=== PATIENT | female | born 1960 | race Caucasian/White ===

== ENCOUNTER → 2020-09-06 13:41 | Outpatient (BNVA) | payer MEDICARE, SELFPAY | PROVIDERS: PCP Internal Medicine; Visit Provider Hospitalist | DX: D80.1 Nonfamilial hypogammaglobulinemia (principal); J45.40 Moderate persistent asthma, uncomplicated; J01.00 Acute maxillary sinusitis, unspecified | CPT/HCPCS: 99212 ==

== ENCOUNTER → 2020-10-25 13:59 | Outpatient (BNVA) | payer MEDICARE, SELFPAY | PROVIDERS: PCP Internal Medicine; Visit Provider Hospitalist | DX: J01.00 Acute maxillary sinusitis, unspecified (principal); J45.40 Moderate persistent asthma, uncomplicated; D80.1 Nonfamilial hypogammaglobulinemia | CPT/HCPCS: Q3014 ==

== ENCOUNTER → 2021-03-08 14:30 | Outpatient (BNVA) | payer MEDICARE, SELFPAY | PROVIDERS: PCP Internal Medicine; Visit Provider Hospitalist | DX: J45.40 Moderate persistent asthma, uncomplicated (principal); D80.1 Nonfamilial hypogammaglobulinemia | CPT/HCPCS: 99212 ==

== ENCOUNTER → 2021-10-27 13:30 | Outpatient (BNVA) | payer MEDICARE, SELFPAY | PROVIDERS: PCP Internal Medicine; Visit Provider Hospitalist | DX: J45.40 Moderate persistent asthma, uncomplicated (principal); J32.9 Chronic sinusitis, unspecified; D80.1 Nonfamilial hypogammaglobulinemia; Z79.899 Other long term (current) drug therapy | CPT/HCPCS: 99212 ==

== ENCOUNTER 2021-11-07 20:24 | Emergency (ER) | payer MEDICARE, SELFPAY ==
[2021-11-07 20:28] VITALS: BP 147/87; PULSE 103; RESP 20; TEMP 36.5; O2SAT 98; BMI 36.6
[2021-11-07 21:14] LABS: MANUAL DIFF FLAG NO
[2021-11-07 21:15] LABS: Basophils Percent Auto 0.3 % (0-2); Eosinophils Percent Auto 0.1 % (0-4); Hematocrit 43.5 % (37.0-47.0); Hemoglobin 14.2 g/dl (12.0-16.0); Imm Gran Abs Auto 0.06 X10*3/uL (0.00-0.03); Imm Gran Pct Auto 0.4 % (0.0-0.4); Lymphocytes Absolute Auto 3.2 X10*3/uL (1.2-4.9); Mean Corpuscular HGB Conc 32.6 g/dl (31.0-35.0); Mean Corpuscular Hemoglobin 27.4 pg (27.0-33.0); Mean Corpuscular Volume 83.8 fL (80.0-98.0); Mean Platelet Volume 8.8 fL (9.4-12.3); Monocytes Percent Auto 6.6 % (2-11); Neutrophils Absolute Auto 10.8 x10*3/uL (2.0-8.3); Neutrophils Percent Auto 71.6 % (45-73); Platelet Count 348 X10*3/uL (160-400); Red Blood Count 5.19 X10*6/uL (4.20-5.50); Red Cell Distribution Width 12.7 % (11.0-16.0); White Blood Count 15.1 X10*3/uL (4.8-10.8)
[2021-11-07 21:20] LABS: Appearance Urine CLEAR; Color Urine YELLOW; Glucose Urine UA NEG (NEG); Leukocyte Esterase Urine TRACE (NEG); Nitrite Urine NEG (NEG); PH 6.5 (5.0-8.0); UACC Culture Trigger YES; Urine Blood 3+ (NEG); Urine Ketones NEG (NEG); Urine Protein NEG (NEG-TRACE)
[2021-11-07 21:28] LABS: Anion Gap 12 (12-20); Blood Urea Nitrogen 11 mg/dL (9-16); Calcium 10.2 mg/dL (8.4-10.2); Carbon Dioxide 30 mmol/L (22-29); Chloride 103 mmol/L (96-108); Creatinine Clr Calc Pharmacy 81.3; Estimated Glomerular Filt Rate > 60; Glucose Random 122 mg/dL (60-115); Potassium 4.8 mmol/L (3.3-5.1); Sodium 140 mmol/L (135-145)
[2021-11-07 21:30] LABS: WBC Urine 0-2 /HPF (0-4)
== END 2021-11-07 23:33 | disposition left against medical advice (07) ==
PROVIDERS: Emergency Provider Emergency Medicine; PCP Internal Medicine
DX: R10.9 Unspecified abdominal pain (principal); Z87.442 Personal history of urinary calculi
CPT/HCPCS: 36415; 80048; 81001; 85025; 87086; 99283

== ENCOUNTER 2021-11-08 13:26 | Emergency (ER) | payer MEDICARE, SELFPAY ==
--- NOTE | ~2021-11-08 | CT_ITS ---
EXAMINATION: CT ABDOMEN AND PELVIS WITH CONTRAST CLINICAL INFORMATION: Right flank pain COMPARISON: None TECHNIQUE: Multidetector volumetric images were obtained from the superior aspect of the liver through the pubic symphysis following administration 85 mL of Omnipaque 350 intravenous contrast. Sagittal and coronal reformatted images were obtained on the technologist's workstation. Oral contrast: No This CT examination was performed using dose optimization techniques as appropriate, variously including the following: *Automated exposure control *Adjustment of mA and/or kV according to patient size (this includes techniques or standardized protocols for targeted exams where dose is matched to indication/reason for exam; i.e. extremities or head) *Use of iterative reconstruction technique DLP: 825 mGy-cm FINDINGS: LUNG BASES: Visualized lung bases are unremarkable. ABDOMINAL AND PELVIC WALL: Unremarkable. LIVER AND BILIARY TREE: Standard hepatic cysts and hepatic hypodensities too small to characterize. Trace prominence of the central intrahepatic bile ducts status post cholecystectomy. Common bile duct is normal in caliber for the postcholecystectomy state measuring 0.9 cm. GALLBLADDER: Status post cholecystectomy. PANCREAS: Unremarkable SPLEEN: A 1.0 cm splenic artery aneurysm. ADRENAL GLANDS: Unremarkable. KIDNEYS AND URETERS: No hydronephrosis or nephrolithiasis. UPPER GASTROINTESTINAL TRACT: Small hiatal hernia. VASCULAR: Unremarkable. LYMPH NODES: No lymphadenopathy. FREE FLUID: No free fluid. BLADDER: Unremarkable PELVIC VISCERA: Status post hysterectomy. LOWER GASTROINTESTINAL TRACT: Colonic diverticulosis without evidence of diverticulitis. Normal appendix. OSSEOUS STRUCTURES: Multilevel degenerative disc disease. CT/CT abdomen pelvis w con IMPRESSION: Normal appendix without findings of acute appendicitis. No hydronephrosis or nephrolithiasis. Trace prominence of the central intrahepatic bile ducts without extrahepatic biliary duct dilatation, likely related to the postcholecystectomy state. A 1.0 cm splenic artery aneurysm.
[2021-11-08 13:57] VITALS: BP 169/88; PULSE 85; RESP 17; TEMP 36.9; O2SAT 98; BMI 35.7
[2021-11-08 14:13] LABS: MANUAL DIFF FLAG NO
[2021-11-08 14:16] LABS: Basophils Absolute Auto 0.1 X10*3/uL (0.0-0.2); Basophils Percent Auto 0.4 % (0-2); Eosinophils Percent Auto 0.1 % (0-4); Hematocrit 43.2 % (37.0-47.0); Hemoglobin 14.3 g/dl (12.0-16.0); Imm Gran Abs Auto 0.08 X10*3/uL (0.00-0.03); Imm Gran Pct Auto 0.6 % (0.0-0.4); Lymphocytes Absolute Auto 1.6 X10*3/uL (1.2-4.9); Lymphocytes Percent Auto 12.5 % (20-40); Mean Corpuscular HGB Conc 33.1 g/dl (31.0-35.0); Mean Corpuscular Hemoglobin 27.6 pg (27.0-33.0); Mean Corpuscular Volume 83.2 fL (80.0-98.0); Mean Platelet Volume 8.7 fL (9.4-12.3); Monocytes Absolute Auto 0.4 X10*3/uL (0.1-1.2); Monocytes Percent Auto 2.8 % (2-11); Neutrophils Absolute Auto 10.9 x10*3/uL (2.0-8.3); Neutrophils Percent Auto 83.6 % (45-73); Platelet Count 344 X10*3/uL (160-400); Red Blood Count 5.19 X10*6/uL (4.20-5.50); Red Cell Distribution Width 12.6 % (11.0-16.0); White Blood Count 13.1 X10*3/uL (4.8-10.8)
[2021-11-08 14:20] LABS: Appearance Urine CLEAR; Color Urine YELLOW; Glucose Urine UA NEG (NEG); Leukocyte Esterase Urine NEG (NEG); Nitrite Urine NEG (NEG); PH 6.5 (5.0-8.0); Specific Gravity - Urine <= 1.005 (1.005-1.025); Urine Blood NEG (NEG); Urine Ketones NEG (NEG); Urine Protein NEG (NEG-TRACE)
[2021-11-08 14:34] LABS: Alanine Aminotransferase 67 U/L (0-31); Albumin Level 4.8 g/dL (3.5-5.0); Alkaline Phosphatase 101 U/L (39-117); Anion Gap 13 (12-20); Aspartate Amino Transferase 63 U/L (5-31); Bilirubin Total 0.6 mg/dL (0.0-1.0); Blood Urea Nitrogen 12 mg/dL (9-16); Calcium 9.8 mg/dL (8.4-10.2); Carbon Dioxide 27 mmol/L (22-29); Chloride 101 mmol/L (96-108); Creatinine Clr Calc Pharmacy 77.6; Estimated Glomerular Filt Rate > 60; Glucose Random 119 mg/dL (60-115); Potassium 5.5 mmol/L (3.3-5.1); Sodium 135 mmol/L (135-145); Total Protein 7.5 g/dL (6.5-8.0)
--- NOTE | 2021-11-08 16:26 | ED.ABDPAIN ---
HPI - Abdominal Pain General Chief Complaint: Abdominal Pain Stated Complaint: infection question kidney stone Time Seen by Provider: 11/08/21 15:59 Source: patient Mode of arrival: ambulatory Limitations: no limitations History of Present Illness HPI narrative: 61-year-old female who presents emergency department for evaluation of right flank pain and right lower quadrant abdominal pain. The patient states that over the last several days she had on and off right flank pain. She states that yesterday at around 17:00 hours the pain became severe . She points to her right flank states the pain travel to her right lower quadrant as well. She states the pain was a sharp stabbing pain that felt like her kidney stone pain in the past. The pain was constant, sharp and was 10/10. She also had a dull ache in her right lower quadrant area. She came to the emergency department yesterday waited 4 hours but had to go home since she was uncomfortable and not been seen yet. Patient had laboratory evaluation yesterday which revealed a WBC of 15,000, urinalysis revealed 3+ blood, trace leukocyte esterase. She had 5-9 RBCs and 0-2 WBCs on microscopic evaluation. Patient states that since going home the right flank pain has improved but she still is having right lower quadrant pain. She states the right lower quadrant pain is a constant, dull ache which is 8/10. She states that prior to coming to the emergency department she went to an urgent care clinic, had a urinalysis which was unremarkable and was told to go to the emergency department for possible urinary tract infection versus kidney stone. She denied fever but has been experiencing chills. She had nausea with no vomiting or, she denied change in her bowel movements. She denied frequency but has had some urgency, she denied dysuria. Patient states that she is immunocompromised and has hypogammaglobulinemia. She states she has had the Pfizer COVID-19 vaccine x4 doses since she did not generate adequate antibodies after the 3rd dose. MD elicited complaint: abdominal pain (RLQ) and flank pain (Right) Pertinent past history: kidney stones Onset (ago): day(s) (3-4) Pain Consistency: constant Location: RLQ and R flank Severity: severe Pain scale (0-10): 8 Quality: aching and sharp Radiation: RLQ Exacerbating factors: nothing Relieving factors: nothing Associated symptoms: nausea, chills, hematuria and other (Urgency) Treatments prior to arrival: NSAIDs Related Data Previous Rx's Medication Instructions Recorded albuterol sulfate 2.5 mg (3 mL) INHALATION Q4H PRN 09/06/20 30 Days #90 ml spironolactone 50 mg tablet 50 mg PO BID #180 tab 11/17/20 montelukast 10 mg tablet 10 mg PO QPM #30 tab 02/09/21 thyroid (pork) 180 mg tablet 180 mg PO DAILY #90 tab 03/29/21 atenolol 25 mg tablet 25 mg PO BID #180 tab 07/21/21 Symbicort 160 mcg-4.5 2 puff PO BID #10.2 g NS 10/11/21 mcg/actuation HFA aerosol inhaler (budesonide-formoterol) albuterol sulfate 90 mcg/actuation 2 puff PO Q6H PRN #8.5 g 10/17/21 aerosol inhaler budesonide 160 mcg-glycopyr 9 2 inh INHALATION BID 30 Days #10.7 10/27/21 mcg-formot 4.8 mcg/actuation HFA g inhaler (Breztri Aerosphere) benzonatate 200 mg capsule 200 mg PO BID PRN 30 Days #60 cap 10/31/21 albuterol sulfate 2.5 mg (3 mL) INHALATION Q4H PRN 11/03/21 #90 ml morphine 15 mg immediate release 15 mg PO Q4-6H PRN #10 tab 11/08/21 tablet ondansetron 4 mg disintegrating 4 mg PO Q6-8H PRN #14 tab 11/08/21 tablet Allergies Allergy/AdvReac Type Severity Reaction Status Date / Time No Known Allergies Allergy Mild NOT Verified 11/08/21 12:55 APPLICABLE Review of Systems Review of Systems Yes all other systems are reviewed and are negative [facility] Past Medical History [facility] Narrative: Past medical history: As below, she also states she has chronic Lyme disease, tachycardia. Past surgical history: Cholecystectomy. 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 Medical History Asthma Cervical spondylosis Graves disease HTN (hypertension) Hypogammaglobulinemia Hypothyroidism Major depressive disorder Social History Social History Patient Tobacco Use Status: Never used Tobacco Advance Directives: No Advance Directives Information Provided: No Physical Exam ED Vital Signs: Vital Signs - 24 hr 11/08/21 13:57 11/08/21 18:24 Temperature 98.4 F 98.6 F Pulse Rate 85 80 Respiratory Rate 17 15 Blood Pressure 169/88 H 116/36 L Pulse Oximetry 98 95 BMI result Body Mass Index 35.7 Const Other: Awake, alert, female patient, very pleasant and cooperative, does not appear to be in distress, answers all questions appropriately HENMT Head: Yes normal to inspection, Yes normocephalic and Yes atraumatic Ears: external ears normal General nose exam: Normal external nose present Face and sinus: Yes normal facial exam Mouth: Normal oral and palatal mucosa present Throat: Yes posterior oropharynx normal Eyes General: appearance normal, both eyes and all related structures Pupils: Equal, round and reactive pupils present Neck Neck: Yes normal visual inspection, Yes no lymphadenopathy, Yes trachea midline and Yes supple Chest Chest palpation & inspection: normal inspection of the chest and normal palpation of entire chest wall Resp Effort & Inspection: normal respiratory effort and able to speak in complete sentences Auscultation: clear to auscultation bilaterally Cardio Rate: regular rate Rhythm: regular rhythm Heart sounds: S1 normal heart sound present, S2 normal heart sound present and no murmurs GI Inspection: Yes normal to inspection Palpation (GI): Soft to palpation, Tenderness to palpation present (GI) in the epigastrum (Mild), in the RLQ (Moderate) and in the LUQ (Mild) and no guarding Auscultation: normal bowel sounds General: Yes CVA tenderness on the right ([id number]) Back/Spine/Pelvis Back: CVA tenderness Skin General skin exam: no rashes or lesions noted Neuro Cranial nerves: Yes CN's II-XII intact bilaterally and Yes Equal, round and reactive pupils present Cognition (Neuro): normal cognition Motor exam (neuro): 5/5 motor strength present throughout Extrem General: Yes normal to inspection Psych Appearance: grossly normal Speech and movement: Normal speech and movement present Affect: normal affect Attitude: cooperative Thought process: Normal thought process present Thought content: Normal thought content present Course Course Course Narrative: 61 year-old female who presents emergency department for evaluation right flank pain on and off for several days with constant severe right flank pain which began yesterday at around 21:00 hours with pain radiating to her right lower quadrant. Patient's right flank pain improved but her right lower quadrant pain is now constant and is 8/10. She initially did have some hematuria which resolved. Patient was here in the emergency department yesterday but had to leave prior to being seen. Yesterday [place] [id number], urinalysis with 3+ blood but only 5-9 RBCs and 0-2 WBCs. Vital signs today revealed an elevated blood pressure of 169/88 otherwise were unremarkable. Exam did reveal moderate right lower quadrant tenderness, [id number] right flank tenderness. Laboratory evaluation today [place] [id number], elevated AST and ALT of 63 and 67 with a negative urinalysis. Differential includes was not limited to renal colic, ureteral stone, appendicitis, colitis, appendicitis. Patient was ordered to get Toradol 15 mg IV, normal saline x1 L and Zofran 4 mg IV. I will obtain a CT scan of the abdomen pelvis with IV contrast. 2034: Patient's pain only minimally improved with the IV Toradol but her nausea improved with the IV Zofran. The patient required morphine 4 mg IV x2 with significant improvement of her pain. The patient's CT scan of the abdomen pelvis did not reveal a clear cause for abdominal pain. The patient did have an incidental finding, a 1.0 cm splenic artery aneurysm which I do not think is related to her right lower quadrant pain. The patient did have hematuria and I suspect she may have passed kidney stone. Possible that she may still be experiencing renal colic and I did discuss this with her. Patient was advised to take Tylenol ibuprofen for pain and for pain not relieved by these 2 medications she was prescribed morphine. She was also given prescription for Zofran. She was advised to follow-up with her PCP to discuss the splenic artery aneurysm and for re-evaluation of her pain. MDM - Abdominal Pain Lab Data Result diagrams: 11/08/21 14:07 11/08/21 14:07 Labs: Lab Results 11/08/21 11/08/21 11/08/21 Range/Units 14:07 14:07 14:11 WBC 13.1 H (4.8-10.8) X10*3/uL RBC 5.19 (4.20-5.50) X10*6/uL Hgb 14.3 (12.0-16.0) g/dl Hct 43.2 (37.0-47.0) % MCV 83.2 (80.0-98.0) fL MCH 27.6 (27.0-33.0) pg MCHC 33.1 (31.0-35.0) g/dl RDW 12.6 (11.0-16.0) % Plt Count 344 (160-400) X10*3/uL MPV 8.7 L (9.4-12.3) fL Immature Gran % (Auto) 0.6 H (0.0-0.4) % Neut % (Auto) 83.6 H (45-73) % Lymph % (Auto) 12.5 L (20-40) % Ralls % (Auto) 2.8 (2-11) % Eos % (Auto) 0.1 (0-4) % Baso % (Auto) 0.4 (0-2) % Lymph # (Auto) 1.6 (1.2-4.9) X10*3/uL Ralls # (Auto) 0.4 (0.1-1.2) X10*3/uL Eos # (Auto) 0.0 (0.0-0.4) X10*3/uL Baso # (Auto) 0.1 (0.0-0.2) X10*3/uL Abs Immat Gran (auto) 0.08 H (0.00-0.03) X10*3/uL Absolute Neuts (auto) 10.9 H (2.0-8.3) x10*3/uL Absolute Nucleated RBC 0.000 (0.0-0.012) X10*3/uL Nucleated RBC % (auto) 0.0 (0.0-0.2) /100WBC Sodium 135 (135-145) mmol/L Potassium 5.5 H (3.3-5.1) mmol/L Chloride 101 (96-108) mmol/L Carbon Dioxide 27 (22-29) mmol/L Anion Gap 13 (12-20) BUN 12 (9-16) mg/dL Creatinine 0.89 (0.5-1.4) mg/dL Estim Creat Clear Calc 77.6 Estimated GFR > 60 Random Glucose 119 H (60-115) mg/dL Calcium 9.8 (8.4-10.2) mg/dL Total Bilirubin 0.6 (0.0-1.0) mg/dL AST 63 H (5-31) U/L ALT 67 H (0-31) U/L Alkaline Phosphatase 101 (39-117) U/L Total Protein 7.5 (6.5-8.0) g/dL Albumin 4.8 (3.5-5.0) g/dL Lipase 43 (8-78) U/L Urine Color YELLOW Urine Appearance CLEAR Urine pH 6.5 (5.0-8.0) Ur Specific [place] <= 1.005 (1.005-1.025) Urine Protein NEG (NEG-TRACE) MG/DL Urine Glucose (UA) NEG (NEG) MG/DL Urine Ketones NEG (NEG) MG/DL Urine Blood NEG (NEG) Urine Nitrite NEG (NEG) Ur Leukocyte Esterase NEG (NEG) Discharge Plan Discharge Clinical Impression: Abdominal pain, Hematuria, Aneurysm of splenic artery Patient Disposition: Home, Self-Care Instructions: Renal Colic (ED) Additional Instructions: Your laboratory evaluation was essentially unremarkable except for slight elevation in your white blood cell count and a slight elevation in your liver enzymes (AST and ALT). Your urinalysis today was normal with no evidence of an infection but you did have blood in your urine on 11/07/2021. The CT scan of your abdomen pelvis with IV contrast did not reveal a clear cause for your pain but I suspect that she may have had a kidney stone that cause the blood in urine in your pain. Sometimes pain from a kidney stone can persist (renal colic). Take ibuprofen 200 mg pills, 3 pills every 6 hours as needed for pain. Take Tylenol (acetaminophen) 2 pills every 4-6 hours as needed for pain. For pain not relieved by ibuprofen or Tylenol take morphine 15 mg pills, 1 pill every 4 hours as needed for pain. This medication will make you sleepy, do not drive or work while taking this medication. Morphine is a narcotic medication and can be addicting. If you are concerned about addiction you can ask the pharmacist for less pills or do not get this prescription filled. Take Zofran ODT 4 mg pills, 1 pill dissolved in your mouth every 8 hours as needed for nausea and vomiting. The CT scan did reveal a 1 cm splenic artery aneurysm. You should discuss this with your doctor in your doctor should refer you to her vascular surgeon to see if this needs to be treated in any way. Follow-up with your doctor in 2 days. Please return to the emergency department if your symptoms get worse or if you develop any symptoms that are concerning to you. Prescriptions: New morphine 15 mg tablet 15 mg PO Q4-6H PRN (Reason: pain) Qty: 10 0RF Rx Instructions: The patient may ask for partial fill ondansetron 4 mg tablet,disintegrating 4 mg PO Q6-8H PRN (Reason: nausea and vomiting) Qty: 14 0RF No Action spironolactone 50 mg tablet 50 mg PO BID Qty: 180 3RF montelukast 10 mg tablet 10 mg PO QPM Qty: 30 3RF thyroid (pork) 180 mg tablet 180 mg PO DAILY Qty: 90 3RF atenolol 25 mg tablet 25 mg PO BID Qty: 180 3RF budesonide-formoterol [Symbicort] 160-4.5 mcg/actuation HFA aerosol inhaler 2 puff PO BID Qty: 10.2 0RF albuterol sulfate 90 mcg/actuation HFA aerosol inhaler 2 puff PO Q6H PRN (Reason: for wheezing) Qty: 8.5 0RF benzonatate 200 mg capsule 200 mg PO BID PRN (Reason: cough) 30 Days Qty: 60 6RF albuterol sulfate 2.5 mg /3 mL (0.083 %) solution for nebulization 2.5 mg inhalation Q4H PRN (Reason: for wheezing) Qty: 90 0RF albuterol sulfate 2.5 mg /3 mL (0.083 %) solution for nebulization 2.5 mg inhalation Q4H PRN (Reason: shortness of breath or wheezing) 30 Days Qty: 90 11RF Breztri Aerosphere 160-9-4.8 mcg/actuation HFA aerosol inhaler 2 inh inhalation BID 30 Days Qty: 10.7 11RF
[2021-11-08 16:54] LABS: Lipase 43 U/L (8-78)
[2021-11-08] MEDS: ondansetron HCL 4 MG/2 ML VIAL IVPUSH (17:56)
[2021-11-08] MEDS: 0.9 % Sodium Chloride 1,000 ML 999 ML IV (17:56)
[2021-11-08] MEDS: Ketorolac Tromethamine 15 MG/ML VIAL IVPUSH (18:00)
[2021-11-08] MEDS: iohexoL 350 MG/ML 100 ML INFUS..BTL IV (18:19)
[2021-11-08 18:24] VITALS: BP 116/36; PULSE 80; RESP 15; TEMP 37; O2SAT 95
[2021-11-08] MEDS: Morphine Sulfate 4 MG/ML CARTRIDGE IVPUSH ×2 (19:06→20:46)
[2021-11-08 20:37] VITALS: BP 132/51; PULSE 80; RESP 16; TEMP 37; O2SAT 95
== END 2021-11-08 21:03 | disposition home or self-care (01) ==
PROVIDERS: Emergency Provider Emergency Medicine Emergency Medical Services; PCP Internal Medicine
DX: I72.8 Aneurysm of other specified arteries (principal); R31.9 Hematuria, unspecified; R39.15 Urgency of urination; R10.31 Right lower quadrant pain; Z79.899 Other long term (current) drug therapy
CPT/HCPCS: 36415; 74177; 80053; 81003; 83690; 85025; 96361; 96374; 96375; 96376; 99284; J1885; J2270; J2405; Q9967

== ENCOUNTER 2021-11-22 10:34 | Outpatient (REF) | payer MEDICARE, SELFPAY ==
[2021-11-22 11:10] LABS: MANUAL DIFF FLAG NO
[2021-11-22 11:56] LABS: Estimated Average Glucose 108 mg/dL; Hemoglobin A1c % 5.4 %
[2021-11-22 11:58] LABS: Basophils Absolute Auto 0.1 X10*3/uL (0.0-0.2); Basophils Percent Auto 0.7 % (0-2); Eosinophils Absolute Auto 0.1 X10*3/uL (0.0-0.4); Eosinophils Percent Auto 1.7 % (0-4); Hematocrit 41.1 % (37.0-47.0); Hemoglobin 13.3 g/dl (12.0-16.0); Imm Gran Abs Auto 0.01 X10*3/uL (0.00-0.03); Imm Gran Pct Auto 0.1 % (0.0-0.4); Lymphocytes Percent Auto 28.6 % (20-40); Mean Corpuscular HGB Conc 32.4 g/dl (31.0-35.0); Mean Corpuscular Hemoglobin 27.1 pg (27.0-33.0); Mean Corpuscular Volume 83.7 fL (80.0-98.0); Mean Platelet Volume 9.3 fL (9.4-12.3); Monocytes Absolute Auto 0.6 X10*3/uL (0.1-1.2); Neutrophils Absolute Auto 4.4 x10*3/uL (2.0-8.3); Neutrophils Percent Auto 60.9 % (45-73); Platelet Count 306 X10*3/uL (160-400); Red Blood Count 4.91 X10*6/uL (4.20-5.50); Red Cell Distribution Width 12.5 % (11.0-16.0); White Blood Count 7.1 X10*3/uL (4.8-10.8)
[2021-11-22 12:40] LABS: Erythrocyte Sedimentation Rate 16 MM/HR (0-20)
[2021-11-22 12:52] LABS: TSH reflex Free T4 1.92 uIU/mL (0.32-4.0)
[2021-11-22 12:54] LABS: Alanine Aminotransferase 30 U/L (0-31); Albumin Level 4.5 g/dL (3.5-5.0); Alkaline Phosphatase 89 U/L (39-117); Anion Gap 13 (12-20); Aspartate Amino Transferase 18 U/L (5-31); Bilirubin Total 0.8 mg/dL (0.0-1.0); Blood Urea Nitrogen 10 mg/dL (9-16); Calcium 9.5 mg/dL (8.4-10.2); Carbon Dioxide 24 mmol/L (22-29); Chloride 104 mmol/L (96-108); Cholesterol 243 mg/dL; Estimated Glomerular Filt Rate > 60; Glucose Fasting 95 mg/dL (60-99); HDL Cholesterol 83 mg/dL; LDL Cholesterol Calculated 148 mg/dl; Potassium 4.4 mmol/L (3.3-5.1); Sodium 137 mmol/L (135-145); Triglycerides 64 mg/dL
[2021-11-23 21:37] LABS: Immunoglobulin G Subclass 1 328 mg/dL (382-929); Immunoglobulin G Subclass 2 240 mg/dL (241-700); Immunoglobulin G Subclass 3 12 mg/dL (22-178); Immunoglobulin G Total 650 mg/dL (600-1640)
[2021-11-24 05:26] LABS: Immunoglobulin E 5 kU/L (<OR=114)
== END 2021-11-22 10:35 | disposition home or self-care (01) ==
LOC: HO.LAB 10:34
PROVIDERS: Absent Provider Internal Medicine; PCP Internal Medicine; Visit Provider Hospitalist
DX: E03.9 Hypothyroidism, unspecified (principal); J45.40 Moderate persistent asthma, uncomplicated; R73.9 Hyperglycemia, unspecified
CPT/HCPCS: 36415; 80053; 80061; 82784; 82785; 83036; 84443; 85025; 85652; 86140

== ENCOUNTER → 2022-02-16 14:26 | Outpatient (BNVA) | payer MEDICARE, SELFPAY | PROVIDERS: PCP Internal Medicine; Visit Provider Surgery Vascular Surgery | DX: I72.8 Aneurysm of other specified arteries (principal) | CPT/HCPCS: 99212 ==

== ENCOUNTER → 2022-12-14 15:49 | Outpatient (BNVA) | payer MEDICARE, SELFPAY | PROVIDERS: PCP Internal Medicine; Visit Provider Hospitalist | DX: J44.9 Chronic obstructive pulmonary disease, unspecified (principal); J45.50 Severe persistent asthma, uncomplicated; D80.1 Nonfamilial hypogammaglobulinemia | CPT/HCPCS: 99212 ==

== ENCOUNTER 2023-03-28 05:11 | Inpatient (IN) | payer MEDICARE, SELFPAY ==
[2023-03-28] VITALS (9 sets, daily range): BP systolic 116–143; BP diastolic 58–76; PULSE 72–96; RESP 14–22; TEMP 35.7–37.4; O2SAT 92–96; BMI 37.7; BMI 38.0
--- NOTE | 2023-03-28 06:08 | ED.GENADULT ---
HPI - General Adult General Chief complaint: Nausea/Vomiting/Diarrhea Stated complaint: vertigo d/n/v Time Seen by Provider: 03/28/23 05:56 Source: patient and family Mode of arrival: ambulatory Limitations: no limitations History of Present Illness HPI narrative: Patient comes to the emergency room complaining of severe dizziness, room spinning, nausea vomiting. Patient states that she woke up with severe dizziness speed. The patient decided to stay at home for 2 hours hoping that the symptoms would self resolve. However, any head movement would worsen the symptoms. Patient went to sleep asymptomatic. Patient states that she also has abdominal pain, which started prior to started vomiting from the dizziness. Patient denies chest pain or headache. Patient states that she has been vomiting so much that now she has since specks of blood in the vomit. Denies any black stools, no rectal bleeding. Related Data Home Medications Medication Instructions Recorded Confirmed atenolol 25 mg tablet 50 mg PO DAILY 12/14/22 nebulizers 12/14/22 roflumilast 250 mcg tablet 500 mcg PO DAILY 03/17/23 Previous Rx's Medication Instructions Recorded albuterol sulfate 2.5 mg/3 mL 2.5 mg (3 mL) inhalation Q4H PRN 11/03/21 (0.083 %) solution for nebulization for wheezing #90 mL spironolactone 50 mg tablet 50 mg PO BID #180 tabs 01/23/22 roflumilast 500 mcg tablet 500 mcg PO DAILY 30 days #30 tabs 12/27/22 (Daliresp) albuterol sulfate 90 mcg/actuation 2 puff PO Q6H PRN for wheezing #1 01/03/23 aerosol inhaler ea Iglesiatri Aerosphere 160 2 inh PO BID #10.7 grams 03/09/23 mcg-9mcg-4.8mcg/actuation HFA aerosol inhaler ([id number]) lisinopril 10 mg tablet 10 mg PO DAILY #30 tabs 03/17/23 thyroid (pork) 180 mg tablet 180 mg PO DAILY #90 tabs 03/17/23 Allergies Allergy/AdvReac Type Severity Reaction Status Date / Time No Known Allergies Allergy Mild NOT Verified 03/17/23 14:30 APPLICABLE Review of Systems Review of Systems: Constitutional : No Weight loss, No Fever, No Chills, No Night Sweats, No Fatigue, No Malaise ENT/Mouth : No Hearing loss, No Ear Pain, No Nasal Congestion, No Sinus Pain, No Hoarseness, No sore throat, No Rhinorrhea, No Swallowing Difficulty Eyes: No Eye Pain, No Swelling, No Redness, No Foreign Body, No Discharge, No Vision Changes Cardiovascular : No Chest Pain, No SOB, No Dyspnea on Exertion, No Orthopnea, No Edema, No Palpitations Respiratory : No Cough, No Sputum, No Wheezing, No Smoke Exposure, No Dyspnea Gastrointestinal : Complaining of severe nausea, violent vomiting, no diarrhea, complaining of epigastric pain Genitourinary : no irregular bleeding, No Dysuria, No Urinary Frequency, No Hematuria, No Urinary Incontinence, No Urgency, No Flank Pain, No Urinary Flow Changes, No Hesitancy Musculoskeletal : No joint pain, No Myalgias, No Joint Swelling Skin : No Skin Lesions, No rash Neuro : No Weakness, No Numbness, No Paresthesias, No Loss of Consciousness, complaining of severe dizziness, per patient room spinning Psych : No Anxiety/Panic, No Depression, No SI/HI/AH/VH, No Social Issues, Heme/Lymph: No Bruising, No Bleeding,No Lymphadenopathy Endocrine : No Polyuria, No Polydipsia, No Temperature Intolerance PMFSH Past Medical History Medical History Asthma Asthma-COPD overlap syndrome Cervical spondylosis Graves disease HTN (hypertension) Hyperglycemia Hypogammaglobulinemia Hypothyroidism Lyme disease Major depressive disorder Splenic artery aneurysm Surgical History History of hysterectomy Social History Social History Alcohol intake: never Patient Tobacco Use Status: Never used Tobacco Smoked in Last 30 Days: No Use of substances other than those prescribed or required for medical reasons: No Advance Directives: No Advance Directives Information Provided: Yes Patient : No Physical Exam ED Vital Signs: Vital Signs - 24 hr 03/28/23 05:30 03/28/23 06:39 03/28/23 07:15 Temperature 97.7 F 96.3 F L 97.6 F Pulse Rate 79 94 85 Respiratory Rate 20 22 H 19 Blood Pressure 143/66 H 124/63 131/59 L Pulse Oximetry 93 93 92 Oxygen Delivery Method Room Air Room Air Room Air BMI result Body Mass Index 37.7 Const Other: Appearance: Alert. Oriented X3. Very uncomfortable, actively retching and vomiting Eyes: Pupils equal, round and reactive to light. Positive horizontal nystagmus ENT: Pharynx normal. Neck: Normal inspection. Neck supple. No lymph nodes noted. No crepitus CVS: Normal heart rate and rhythm. Pulses normal. Normal S1 and S2 Respiratory: No respiratory distress. Breath sounds normal. No Wheezing. No rales Abdomen: Soft, mildly tender to palpation epigastric area Skin: Skin warm and dry. Patient expelled cough Normal skin turgor. Extremities: No lower extremity edema. No Lacerations. No Rash Neuro: Oriented X 3. No motor deficit. No sensory deficit. Moving all extremities. No slurred speech. CN 2 through 12 grossly intact Psych: calm, cooperative, NIH Stroke Scale Internal: Initial- Upon Arrival Level of Consciousness: Alert Level of Consciousness Questions: Answers both questions correctly Level of Consciousness Commands: Performs both tasks correctly Best Gaze: Normal Visual: No visual loss Course Course Course Narrative: -all of patient's labs are pending -CTA of head and neck and CT scan of abdomen pending -patient already received Zofran in the IV from the paramedics -at this time patient getting IV fluids, meclizine, Reglan, and Valium -patient reported specks of blood in the vomit, likely secondary to retching. Patient has no chest pain or shortness of breath,, Boerhaave's syndrome not suspected Medications Administered Discontinued Medications Generic Name Dose Route Start Last Admin Trade Name Bhupinder PRN Reason Stop Dose Admin Diazepam 2.5 mg 03/28/23 06:03 03/28/23 06:14 Diazepam 10 Mg/2 Ml Cartridge IVPUSH 03/28/23 06:04 2.5 mg STAT STA Administration Famotidine 20 mg 03/28/23 07:19 03/28/23 07:36 Famotidine/Pf 20 Mg/2 Ml Vial IVPUSH 03/28/23 07:20 20 mg ONCE ONE Administration Sodium Chloride 1,000 mls @ 999 mls/hr 03/28/23 06:03 03/28/23 06:14 Ns IVCONT 03/28/23 07:03 999 mls/hr .Q1H1M ONE Administration Iohexol 70 ml 03/28/23 06:57 03/28/23 06:58 Iohexol 350 Mg/Ml 100 Ml Infus..Btl IV 03/28/23 06:58 70 ml ONCE ONE Administration Metoclopramide HCl 10 mg 03/28/23 06:03 03/28/23 06:15 Metoclopramide Hcl 10 Mg/2 Ml Vial IVPUSH 03/28/23 06:04 10 mg ONCE ONE Administration Medical Decision Making Medical Decision Making [facility] Narrative: -patient has severe vertigo/dizziness. Vertigo versus posterior stroke CVA is possible, escalation of care/admission is considered -after the IV medications, patient states that she does feel a bit better, but still having significant the penis/room spinning. -patient states that she feels that she has the urge to urinate but nothing is coming out. Bladder scan showed 700 mL of urine in the bladder. Patient is getting a Casas catheter.. Patient states that she has had in the past an episode of urinary retention which required catheterization -patient's gastric occult blood is positive, likely from retching. Since patient received medication, patient has not vomited. -radiology report pending. -sign out given to Dr. Hoyos Differential Diagnosis Differential Diagnoses: The differential diagnosis associated with the presentation includes (Vertigo, BPPV, posterior CVA, GI bleed) Admission/Observation Consideration of admission/observation: Escalation of care including admission/observation considered Lab Data [facility] Lab Attestation statement: I reviewed the patient's lab results. (White blood cell count within normal limit) 03/28/23 06:12 03/28/23 06:12 Labs: Lab Results 03/28/23 03/28/23 03/28/23 Range/Units 06:12 06:12 06:12 WBC 8.9 (4.8-10.8) X10*3/uL RBC 4.60 (4.20-5.50) X10*6/uL Hgb 12.6 (12.0-16.0) g/dl Hct 38.1 (37.0-47.0) % MCV 82.8 (80.0-98.0) fL MCH 27.4 (27.0-33.0) pg MCHC 33.1 (31.0-35.0) g/dl RDW 12.3 (11.0-16.0) % Plt Count 288 (160-400) X10*3/uL MPV 8.8 L (9.4-12.3) fL Immature Gran % (Auto) 0.3 (0.0-0.4) % Neut % (Auto) 69.5 (45-73) % Lymph % (Auto) 21.6 (20-40) % Kemper % (Auto) 7.0 (2-11) % Eos % (Auto) 0.9 (0-4) % Baso % (Auto) 0.7 (0-2) % Lymph # (Auto) 1.9 (1.2-4.9) X10*3/uL Kemper # (Auto) 0.6 (0.1-1.2) X10*3/uL Eos # (Auto) 0.1 (0.0-0.4) X10*3/uL Baso # (Auto) 0.1 (0.0-0.2) X10*3/uL Abs Immat Gran (auto) 0.03 (0.00-0.03) X10*3/uL Absolute Neuts (auto) 6.2 (2.0-8.3) x10*3/uL Absolute Nucleated RBC 0.000 (0.0-0.012) X10*3/uL Nucleated RBC % (auto) 0.0 (0.0-0.2) /100WBC PT (10.0-13.1) SEC INR (0.9-1.1) APTT (26.0-36.4) SEC Sodium 137 (135-145) mmol/L Potassium 3.7 (3.3-5.1) mmol/L Chloride 105 (96-108) mmol/L Carbon Dioxide 21 L (22-29) mmol/L Anion Gap 15 (12-20) BUN 9 (9-16) mg/dL Creatinine 0.80 (0.5-1.4) mg/dL Estim Creat Clear Calc 87.8 Estimated GFR > 60 Random Glucose 166 H (60-115) mg/dL Calcium 9.1 (8.4-10.2) mg/dL Magnesium (1.6-2.6) mg/dL Total Bilirubin 0.5 (0.0-1.0) mg/dL AST 14 (5-31) U/L ALT 19 (0-31) U/L Alkaline Phosphatase 60 (39-117) U/L Troponin I High Sens (<3.5-17.0) ng/L Total Protein 6.5 (6.5-8.0) g/dL Albumin 3.9 (3.5-5.0) g/dL Lipase 49 (8-78) U/L Gastric Occult Blood (NEG) Ethyl Alcohol mg/dL Blood Type A Positive Antibody Screen NEGATIVE 03/28/23 03/28/23 03/28/23 Range/Units 06:12 06:12 06:12 WBC (4.8-10.8) X10*3/uL RBC (4.20-5.50) X10*6/uL Hgb (12.0-16.0) g/dl Hct (37.0-47.0) % MCV (80.0-98.0) fL MCH (27.0-33.0) pg MCHC (31.0-35.0) g/dl RDW (11.0-16.0) % Plt Count (160-400) X10*3/uL MPV (9.4-12.3) fL Immature Gran % (Auto) (0.0-0.4) % Neut % (Auto) (45-73) % Lymph % (Auto) (20-40) % Kemper % (Auto) (2-11) % Eos % (Auto) (0-4) % Baso % (Auto) (0-2) % Lymph # (Auto) (1.2-4.9) X10*3/uL Kemper # (Auto) (0.1-1.2) X10*3/uL Eos # (Auto) (0.0-0.4) X10*3/uL Baso # (Auto) (0.0-0.2) X10*3/uL Abs Immat Gran (auto) (0.00-0.03) X10*3/uL Absolute Neuts (auto) (2.0-8.3) x10*3/uL Absolute Nucleated RBC (0.0-0.012) X10*3/uL Nucleated RBC % (auto) (0.0-0.2) /100WBC PT 10.4 (10.0-13.1) SEC INR 0.9 (0.9-1.1) APTT 28.3 (26.0-36.4) SEC Sodium (135-145) mmol/L Potassium (3.3-5.1) mmol/L Chloride (96-108) mmol/L Carbon Dioxide (22-29) mmol/L Anion Gap (12-20) BUN (9-16) mg/dL Creatinine (0.5-1.4) mg/dL Estim Creat Clear Calc Estimated GFR Random Glucose (60-115) mg/dL Calcium (8.4-10.2) mg/dL Magnesium 1.8 (1.6-2.6) mg/dL Total Bilirubin (0.0-1.0) mg/dL AST (5-31) U/L ALT (0-31) U/L Alkaline Phosphatase (39-117) U/L Troponin I High Sens < 2.7 (<3.5-17.0) ng/L Total Protein (6.5-8.0) g/dL Albumin (3.5-5.0) g/dL Lipase (8-78) U/L Gastric Occult Blood (NEG) Ethyl Alcohol mg/dL Blood Type Antibody Screen 03/28/23 03/28/23 Range/Units 06:12 06:15 WBC (4.8-10.8) X10*3/uL RBC (4.20-5.50) X10*6/uL Hgb (12.0-16.0) g/dl Hct (37.0-47.0) % MCV (80.0-98.0) fL MCH (27.0-33.0) pg MCHC (31.0-35.0) g/dl RDW (11.0-16.0) % Plt Count (160-400) X10*3/uL MPV (9.4-12.3) fL Immature Gran % (Auto) (0.0-0.4) % Neut % (Auto) (45-73) % Lymph % (Auto) (20-40) % Kemper % (Auto) (2-11) % Eos % (Auto) (0-4) % Baso % (Auto) (0-2) % Lymph # (Auto) (1.2-4.9) X10*3/uL Kemper # (Auto) (0.1-1.2) X10*3/uL Eos # (Auto) (0.0-0.4) X10*3/uL Baso # (Auto) (0.0-0.2) X10*3/uL Abs Immat Gran (auto) (0.00-0.03) X10*3/uL Absolute Neuts (auto) (2.0-8.3) x10*3/uL Absolute Nucleated RBC (0.0-0.012) X10*3/uL Nucleated RBC % (auto) (0.0-0.2) /100WBC PT (10.0-13.1) SEC INR (0.9-1.1) APTT (26.0-36.4) SEC Sodium (135-145) mmol/L Potassium (3.3-5.1) mmol/L Chloride (96-108) mmol/L Carbon Dioxide (22-29) mmol/L Anion Gap (12-20) BUN (9-16) mg/dL Creatinine (0.5-1.4) mg/dL Estim Creat Clear Calc Estimated GFR Random Glucose (60-115) mg/dL Calcium (8.4-10.2) mg/dL Magnesium (1.6-2.6) mg/dL Total Bilirubin (0.0-1.0) mg/dL AST (5-31) U/L ALT (0-31) U/L Alkaline Phosphatase (39-117) U/L Troponin I High Sens (<3.5-17.0) ng/L Total Protein (6.5-8.0) g/dL Albumin (3.5-5.0) g/dL Lipase (8-78) U/L Gastric Occult Blood POSITIVE H (NEG) Ethyl Alcohol < 10 mg/dL Blood Type Antibody Screen Independent Historian Clinical information obtained from an independent historian. History obtained from or confirmed by: Spouse Critical Care Time Critical Care Time Critical Care Time: Yes Total Critical Care Time: 60 Attestation: I have personally provided critical care time. Time includes review of lab data, radiology results, discussion with consultants, and monitoring for potential decompensation. Intervention performed as documented. Discharge Plan Discharge Clinical Impression: Vertigo, Nausea & vomiting Patient Disposition: Still a Patient Prescriptions: No Action albuterol sulfate 2.5 mg /3 mL (0.083 %) solution for nebulization 2.5 mg inhalation Q4H PRN (Reason: for wheezing) Qty: 90 0RF spironolactone 50 mg tablet 50 mg PO BID Qty: 180 3RF roflumilast [Daliresp] 500 mcg tablet 500 mcg PO DAILY 30 Days Qty: 30 11RF albuterol sulfate 90 mcg/actuation HFA aerosol inhaler 2 puff PO Q6H PRN (Reason: for wheezing) Qty: 1 0RF Breztri Aerosphere 160-9-4.8 mcg/actuation HFA aerosol inhaler 2 inh PO BID Qty: 10.7 0RF roflumilast 250 mcg tablet 500 mcg PO DAILY lisinopril 10 mg tablet 10 mg PO DAILY Qty: 30 0RF thyroid (pork) 180 mg tablet 180 mg PO DAILY Qty: 90 3RF atenolol 25 mg tablet 50 mg PO DAILY (DME) nebulizers Misc See Rx Instructions .ROUTE Rx Instructions: As directed
[2023-03-28 06:20] LABS: MANUAL DIFF FLAG NO
[2023-03-28 06:22] LABS: Basophils Absolute Auto 0.1 X10*3/uL (0.0-0.2); Basophils Percent Auto 0.7 % (0-2); Eosinophils Absolute Auto 0.1 X10*3/uL (0.0-0.4); Eosinophils Percent Auto 0.9 % (0-4); Hematocrit 38.1 % (37.0-47.0); Hemoglobin 12.6 g/dl (12.0-16.0); Imm Gran Abs Auto 0.03 X10*3/uL (0.00-0.03); Imm Gran Pct Auto 0.3 % (0.0-0.4); Lymphocytes Absolute Auto 1.9 X10*3/uL (1.2-4.9); Lymphocytes Percent Auto 21.6 % (20-40); Mean Corpuscular HGB Conc 33.1 g/dl (31.0-35.0); Mean Corpuscular Hemoglobin 27.4 pg (27.0-33.0); Mean Corpuscular Volume 82.8 fL (80.0-98.0); Mean Platelet Volume 8.8 fL (9.4-12.3); Monocytes Absolute Auto 0.6 X10*3/uL (0.1-1.2); Neutrophils Absolute Auto 6.2 x10*3/uL (2.0-8.3); Neutrophils Percent Auto 69.5 % (45-73); Platelet Count 288 X10*3/uL (160-400); Red Cell Distribution Width 12.3 % (11.0-16.0); White Blood Count 8.9 X10*3/uL (4.8-10.8)
--- NOTE | 2023-03-28 06:23 | MHC.EDTECH ---
Patient arrived by EMS, Pt was changed into hospital attire,vitals taken and pt was placed on the desk monitor. Labs and type n screen obtained band applied and warm blanket giving to patient for comfort. Call recio within reach
--- NOTE | 2023-03-28 06:32 | PC.NURSE ---
Pt is very lethargic, reporting pressure in her bladder, was put on a purewick, but still is unable to urinate. Labs have been sent. I placed a 20g IV in the left AC. Pt waiting for CT scan now.
--- NOTE | 2023-03-28 06:40 | MHC.EDTECH ---
Second type obtained and sent to lab. This tech did a rectal temp on pt is was at 96.3. Warm blankets placed on patient and RN Eva and were made aware, Call recio within reach and family is at bedside.
[2023-03-28 06:47] LABS: Alanine Aminotransferase 19 U/L (0-31); Albumin Level 3.9 g/dL (3.5-5.0); Alkaline Phosphatase 60 U/L (39-117); Anion Gap 15 (12-20); Aspartate Amino Transferase 14 U/L (5-31); Bilirubin Total 0.5 mg/dL (0.0-1.0); Blood Urea Nitrogen 9 mg/dL (9-16); Calcium 9.1 mg/dL (8.4-10.2); Carbon Dioxide 21 mmol/L (22-29); Chloride 105 mmol/L (96-108); Creatinine Clr Calc Pharmacy 87.8; Estimated Glomerular Filt Rate > 60; Glucose Random 166 mg/dL (60-115); Lipase 49 U/L (8-78); Potassium 3.7 mmol/L (3.3-5.1); Sodium 137 mmol/L (135-145); Total Protein 6.5 g/dL (6.5-8.0)
[2023-03-28] MEDS: iohexoL 350 MG/ML 100 ML INFUS..BTL 70 ML IV (06:58)
--- NOTE | 2023-03-28 07:15 | PC.NURSE ---
resting w eyes closed, back from ct, states nausea improved, doesn't feel she can swallow the meclizine though, still unable to urinate, will do bladder scan
--- NOTE | 2023-03-28 10:48 | PC.NURSE ---
b/l smile and web site designer, r arm drift when holding up but able to keep up if i really concentrate , passed swallow eval, alert, speech clear, skin wpd. dizziness present but improved w eyes closed
--- NOTE | 2023-03-28 10:56 | PHA.MEDREC ---
Pharmacy Consult ? Medication Reconciliation Pharmacy has completed the medication reconciliation. Patient able to name medications completely on her own, I did specifically ask about the atenolol and how she has not gotten it since April 2022 but she insisted she gets it from [facility].
--- NOTE | 2023-03-28 11:09 | PM.NEUROCN ---
History of Present Illness Data of Consult Service Date: 03/28/23 Primary Care Provider: Unknown Physician HPI Reason for consult: Dizziness 62 years old woman with relatively uncontrolled hypertension in usual state of health watching a movie yesterday when she developed a headache. Pain was mostly in the back of the head or neck. She was not having any cold or flu-like illness. She denied any physical trigger or any unusual physical activity or accident. Her neck pain worsened and she developed severe dizziness nausea and vomiting and came to hospital. She was keeping her eyes closed stating that opening eyes was making her dizziness worse. Dizziness was described as a sense of spinning with nausea. When she stood up and walked she was unsteady an almost fell. There was no change in her speech and no loss of vision. Review of Systems Review of Systems: No recent cold or flu-like illness no chest pain palpitation double vision or change in speech pattern. [facility] Past Medical History Medical History Asthma Asthma-COPD overlap syndrome Cervical spondylosis Graves disease HTN (hypertension) Hyperglycemia Hypogammaglobulinemia Hypothyroidism Lyme disease Major depressive disorder Splenic artery aneurysm Surgical History Surgical History History of hysterectomy Social History Social History Alcohol intake: never Patient Tobacco Use Status: Never used Tobacco Smoked in Last 30 Days: No Use of substances other than those prescribed or required for medical reasons: No Advance Directives: No Advance Directives Information Provided: Yes Patient : No Meds Allergies Allergy/AdvReac Type Severity Reaction Status Date / Time No Known Allergies Allergy Mild NOT Verified 03/17/23 14:30 APPLICABLE Home Medications Medication Instructions Recorded Confirmed Last Taken Type nebulizers 12/14/22 03/28/23 03/27/23 History atenolol 25 mg tablet 25 mg PO BID 03/28/23 03/28/23 03/27/23 History multivitamin 1 tab PO DAILY 03/28/23 03/28/23 03/27/23 History Physical Exam Vital Signs: Vital Signs: Last Vital Signs Temp 97.6 F 03/28/23 07:15 Pulse 96 03/28/23 10:41 Resp 19 03/28/23 10:41 BP 133/69 03/28/23 10:41 Pulse Ox 95 03/28/23 10:41 O2 Del Method Room Air 03/28/23 07:15 BMI result Body Mass Index 37.7 Neuro: Other: She is alert and awake with normal spontaneity of speech fluency comprehension and affect. She is keeping her eyes closed but was able to open them. Pupils were about 2-3 mm round reactive. With eyes open her left eye was deviating medially and little bit upwards. With leftward gaze left eye was not crossing midline. Visual sepulveda were difficult to determine because of uncomfortable feeling with open eyes. Face otherwise was symmetrical. There was mild right pronator drift. Deep tendon reflexes were trace to absent with flexor plantars. Results Labs 03/28/23 06:12 03/28/23 06:12 Labs: Short CBC 03/28/23 Range/Units 06:12 WBC 8.9 (4.8-10.8) X10*3/uL Hgb 12.6 (12.0-16.0) g/dl Hct 38.1 (37.0-47.0) % Plt Count 288 (160-400) X10*3/uL BMP 03/28/23 06:12 Sodium 137 Potassium 3.7 Chloride 105 Carbon Dioxide 21 L BUN 9 Creatinine 0.80 Calcium 9.1 Liver Function 03/28/23 Range/Units 06:12 Total Bilirubin 0.5 (0.0-1.0) mg/dL AST 14 (5-31) U/L ALT 19 (0-31) U/L Alkaline Phosphatase 60 (39-117) U/L Albumin 3.9 (3.5-5.0) g/dL Urine 03/28/23 Range/Units 07:49 Urine Color Yellow Urine Appearance Clear Urine pH 5.5 (5.0-9.0) Ur Specific Machias 1.015 (1.005-1.025) Urine Protein Negative (Neg-Trace) mg/dL Urine Glucose (UA) Negative (Negative) mg/dL noncontrast head CT did not reveal any significant abnormality. CTA of brain and neck was done, which revealed an area of hypodensity in basilar artery suggestive of probably and atherosclerotic plaque or dissection. Assessment and Plan (1) Vertigo: Status: Acute 62 years old woman with new onset of severe neck pain with no obvious trigger or trauma, severe vertigo with nausea and vomiting, and some finding on examination suggestive of brainstem pathology. With that, her CTA revealed an abnormality in basilar artery, which could be suggestive of chronic atherosclerotic plaque but could also be dissection. I have asked emergency room to obtain as stat MRI and MRA of brain to rule out vertebral dissection. In the meantime she is given aspirin and a statin does. Time Spent With Patient Time: Total time managing care of this patient today ____ minutes. Procedures Date of Service Date of Service: 03/28/23
--- NOTE | 2023-03-28 13:06 | MHC.STROKE ---
Dr. Mann reviewed this patient presenation with me. I met the patient Her LKW was 0000 when she went to bed, no symptoms the day prior. Discovery of severe dizziness 0400. She cannot keep her eyes open without vomiting. I assisted her to MRI, results pending. She relayed to me that her PHH: meningitis, Lyme, migraines, trigeminal neuralgia, Moore's Palsy. I reported this to Dr. Mann and Dr. Hoyos. Dr. Mann is recommending an LP. I did notify Dr. Hoyos.
--- NOTE | 2023-03-28 15:45 | PM.IMHP ---
History of Present Illness Date of Service: 03/28/23 Attending physician on admission: Femi [facility] Chief Complaint: vertigo, n/v 62-year-old female with history of hypothyroidism with history of Graves disease s/p CARL, hypogammaglobinemia, asthma/COPD overlap, hypertension, cervical spondylosis, splenic artery aneurysm, and chronic Lyme disease with history of trigeminal neurolalgia presented to the ED earlier today for evaluation of intractable vertigo with associated nausea and vomiting. She states that around 04:00 she woke up and attempted to stand and felt an intense room spinning sensation and became hot and diaphoretic. The vertigo has been constant since then and improves slightly when she closes her eyes. She has also felt generally weak though feels the right side may be weaker than the left. She has had recurrent vomiting episodes including in the hospital with vomitus that has a brown/red tinge. She states prior to symptom onset she did have an occipital headache/neck pain described as a dull ache. She is denies any alcohol use, illicit drug use, or cigarette smoking. She states currently the vertigo persists and she feels quite nauseous though this has improved with the medications administered in the ED including famotidine, meclizine, Reglan, Valium, and ondansetron. She was also given 1 L IVF. Since arrival, vital stable. Hematology studies unremarkable. Renal function and electrolyte levels normal. Glucose 166. Troponin below detectable limits. Urinalysis unremarkable. Gastric occult blood was positive. Ethyl alcohol level undetectable. CT abdomen/pelvis is negative for any acute intra-abdominal abnormality. CTA of the head/neck shows questionable linear filling defect within the midportion of the basilar artery and is otherwise unremarkable. No LVO seen. She was evaluated in the ED by Neurology recommending MRI/MRA of the brain for further evaluation. MRI/MRA of the brain showed a few scattered chronic small vessel ischemic changes within the periventricular white matter but was otherwise unremarkable without any evidence of acute territorial infarct or hemorrhage. MRA was normal with normal flow related signal within the basilar artery and no identifiable defect. Suspect CTA abnormalities for presenting artifact. Discuss case further with Neurology, given intractable symptoms patient will be admitted for further observation and lumbar puncture. Review of Systems Review of Systems: General: No fevers, malaise, unintentional weight loss HEENT: No blurred vision, diplopia. No sore throat, nasal congestion, rhinorrhea, sinus pain, ear pain Cardiovascular: No chest pain, palpitations, or leg edema Respiratory: No shortness of breath, wheezing, cough GI: No abdominal pain, diarrhea, constipation, melena, hematochezia : No dysuria, hematuria, increased urinary frequency, decreased urinary output MSK: No myalgia, back pain Neuro: No headaches, paresthesias. +generalized weakness, +vertigo Skin: No rashes or lesions [facility] Medical History (Updated 03/28/23 @ 17:33 by ROLAND Dupree) Asthma Asthma-COPD overlap syndrome Cervical spondylosis Graves disease HTN (hypertension) Hyperglycemia Hypogammaglobulinemia Hypothyroidism Lyme disease Major depressive disorder Splenic artery aneurysm Surgical History History of hysterectomy Social History Alcohol intake: never Patient Tobacco Use Status: Never used Tobacco Smoked in Last 30 Days: No Use of substances other than those prescribed or required for medical reasons: No Advance Directives: No Advance Directives Information Provided: Yes Nutrition Risks: No Nutritional Risk Patient : No Meds Allergies Allergy/AdvReac Type Severity Reaction Status Date / Time No Known Allergies Allergy Mild NOT Verified 03/17/23 14:30 APPLICABLE Active Medications: Current Medications Acetaminophen (Acetaminophen 325 Mg Tablet) 650 mg PO Q6H PRN PRN Reason: Pain, Mild (Pain Scale 1-3) Albuterol Sulfate (Albuterol Sulfate (0.083%) 2.5 Mg/3 Ml Vial.Neb) 2.5 mg INHALE Q4H PRN PRN Reason: for wheezing Albuterol Sulfate (Albuterol Sulfate 90 Mcg 8 Gm Inhaler) 2 puff INHALE Q6H PRN PRN Reason: for wheezing Atenolol (Atenolol 25 Mg Tablet) 25 mg PO BID [facility]; Protocol Docusate Sodium (Docusate Sodium 100 Mg Capsule) 100 mg PO DAILY PRN PRN Reason: Constipation Lisinopril (Lisinopril 10 Mg Tablet) 10 mg PO DAILY [facility]; Protocol Multivitamins/Vitamin C (Multivitamin Tablet) 1 tab PO DAILY [facility] Non-Formulary Medication (Sglfpnlnpn-Zqriotff-Vknphrjnbd [Breztri Aerosphere]) 2 inhalation PO BID [facility] Non-Formulary Medication (Roflumilast [Daliresp]) 500 mcg PO DAILY [facility] Ondansetron HCl (Ondansetron Hcl 4 Mg/2 Ml Vial) 4 mg IVPUSH Q8H PRN PRN Reason: Nausea and Vomiting Spironolactone (Spironolactone 25 Mg Tablet) 50 mg PO BID [facility]; Protocol Thyroid (Thyroid,Pork 30 Mg Tablet) 180 mg PO DAILY [facility] Home Medications Medication Instructions Recorded Confirmed Last Taken Type nebulizers 12/14/22 03/28/23 03/27/23 History atenolol 25 mg tablet 25 mg PO BID 03/28/23 03/28/23 03/27/23 History multivitamin 1 tab PO DAILY 03/28/23 03/28/23 03/27/23 History Physical Exam Vital Signs and Narrative: Vital Signs: Last Vital Signs Temp 99.3 F 03/28/23 13:02 Pulse 96 03/28/23 13:02 Resp 18 03/28/23 13:02 BP 135/76 03/28/23 13:02 Pulse Ox 96 03/28/23 13:02 O2 Del Method Room Air 03/28/23 13:02 BMI result Body Mass Index 37.7 Constitutional - Awake and Alert, No apparent distress Eyes - PERRLA, EOMI Cardiovascular - S1S2, RRR, No edema Respiratory - Normal lung expansion, Normal respiratory effort, No respiratory distress, CTA bilaterally Gastrointestinal - NT / ND; +BS; No rebound or guarding Extremities - no calf tenderness bilaterally, no swelling Skin - Warm/Dry Neurological - Alert & oriented x3, Speech with normal fluency, no facial droop. PERRLA. Gaze deviates upwards and medially and left eye does not cross midline. Face otherwise symmetric. 5/5 BUE and BLE strength. Sensation in tact. 1+ patellar reflex LLE, Absent RLE. Psychological - Appropriate affect Results Labs 03/28/23 06:12 03/28/23 06:12 Labs: Laboratory Results - last 24 hr 03/28/23 03/28/23 03/28/23 06:12 06:12 06:12 MCV 82.8 MCH 27.4 MCHC 33.1 RDW 12.3 Plt Count 288 MPV 8.8 L Immature Gran % (Auto) 0.3 Neut % (Auto) 69.5 Lymph % (Auto) 21.6 [place] % (Auto) 7.0 Eos % (Auto) 0.9 Baso % (Auto) 0.7 Lymph # (Auto) 1.9 [place] # (Auto) 0.6 Eos # (Auto) 0.1 Baso # (Auto) 0.1 Abs Immat Gran (auto) 0.03 Absolute Neuts (auto) 6.2 Absolute Nucleated RBC 0.000 Nucleated RBC % (auto) 0.0 PT INR APTT Anion Gap 15 Estim Creat Clear Calc 87.8 Estimated GFR > 60 Random Glucose 166 H Calcium 9.1 Magnesium Total Bilirubin 0.5 AST 14 ALT 19 Alkaline Phosphatase 60 Troponin I High Sens Total Protein 6.5 Albumin 3.9 Lipase 49 Urine Color Urine Appearance Urine pH Ur Specific [place] Urine Protein Urine Glucose (UA) Urine Ketones Urine Blood Urine Nitrite Ur Leukocyte Esterase Gastric Occult Blood Ethyl Alcohol Blood Type A Positive Antibody Screen NEGATIVE 03/28/23 03/28/23 03/28/23 06:12 06:12 06:12 MCV MCH MCHC RDW Plt Count MPV Immature Gran % (Auto) Neut % (Auto) Lymph % (Auto) [place] % (Auto) Eos % (Auto) Baso % (Auto) Lymph # (Auto) [place] # (Auto) Eos # (Auto) Baso # (Auto) Abs Immat Gran (auto) Absolute Neuts (auto) Absolute Nucleated RBC Nucleated RBC % (auto) PT 10.4 INR 0.9 APTT 28.3 Anion Gap Estim Creat Clear Calc Estimated GFR Random Glucose Calcium Magnesium 1.8 Total Bilirubin AST ALT Alkaline Phosphatase Troponin I High Sens < 2.7 Total Protein Albumin Lipase Urine Color Urine Appearance Urine pH Ur Specific [place] Urine Protein Urine Glucose (UA) Urine Ketones Urine Blood Urine Nitrite Ur Leukocyte Esterase Gastric Occult Blood Ethyl Alcohol Blood Type Antibody Screen 03/28/23 03/28/23 03/28/23 06:12 06:15 07:49 MCV MCH MCHC RDW Plt Count MPV Immature Gran % (Auto) Neut % (Auto) Lymph % (Auto) [place] % (Auto) Eos % (Auto) Baso % (Auto) Lymph # (Auto) [place] # (Auto) Eos # (Auto) Baso # (Auto) Abs Immat Gran (auto) Absolute Neuts (auto) Absolute Nucleated RBC Nucleated RBC % (auto) PT INR APTT Anion Gap Estim Creat Clear Calc Estimated GFR Random Glucose Calcium Magnesium Total Bilirubin AST ALT Alkaline Phosphatase Troponin I High Sens Total Protein Albumin Lipase Urine Color Yellow Urine Appearance Clear Urine pH 5.5 Ur Specific [place] 1.015 Urine Protein Negative Urine Glucose (UA) Negative Urine Ketones Negative Urine Blood Negative Urine Nitrite Negative Ur Leukocyte Esterase Negative Gastric Occult Blood POSITIVE H Ethyl Alcohol < 10 Blood Type Antibody Screen Imaging Radiologist's Impressions: Impressions Head/Neck CTA 03/28/23 07:15 IMPRESSION: There is a questionable linear filling defect within the midportion of the basilar artery. Otherwise unremarkable CT angiogram of the head and neck in that there is no stenosis of the cervical carotid or vertebral arteries. No intracranial large vessel occlusion. No evidence of acute territorial infarct or hemorrhage. No abnormal intracranial mass or enhancement. Abdomen/Pelvis CT 03/28/23 07:35 IMPRESSION: No evidence of bowel ileus or obstruction. No evidence of obstructive uropathy. No evidence of acute pancreatitis. Small paraesophageal hernia. Fleischner guidelines were followed. Brain MRI 03/28/23 12:43 IMPRESSION: There are a few scattered chronic small vessel ischemic changes within the periventricular white matter. Otherwise unremarkable examination. No evidence of acute territorial infarct or hemorrhage. The MR angiogram of the head is normal. Specifically there is normal flow related signal within the basilar artery with no identifiable defect. Findings on the recent CT angiogram are therefore suspected to represent artifact. Head MRA 03/28/23 12:53 IMPRESSION: There are a few scattered chronic small vessel ischemic changes within the periventricular white matter. Otherwise unremarkable examination. No evidence of acute territorial infarct or hemorrhage. The MR angiogram of the head is normal. Specifically there is normal flow related signal within the basilar artery with no identifiable defect. Findings on the recent CT angiogram are therefore suspected to represent artifact. Assessment and Plan (1) Vertigo: Status: Acute (2) Nausea & vomiting: Status: Acute Plan 62-year-old female with history of hypothyroidism with history of Graves disease s/p CARL, hypogammaglobinemia, asthma/COPD overlap, hypertension, cervical spondylosis, splenic artery aneurysm, and chronic Lyme disease with history of trigeminal neurolalgia to be observed for intractable vertigo. #Intractable vertigo with nausea/vomiting -MRA confirmed no basilar artery occlusion or posterior stroke -lumbar puncture performed in the ED, CSF testing pending to evaluate for possible chronic Lyme among other -serologies for Lyme, anaplasmosis, babesiosis pending -Also consider complex basilar migraine -neurology consult -ondansetron p.r.n., famotidine b.i.d. # hypothyroidism -continue thyroid supplement # asthma/COPD overlap -no acute exacerbation -continue maintenance inhalers, albuterol p.r.n. # hypertension -reasonably controlled -continue lisinopril, atenolol #Acute hematemesis -likely 2/2 retching form vomiting -resolved DVT prophylaxis- SCPs Full code Time Spent With Patient Time: Total time managing care of this patient today ____ minutes. Quality Stroke Does the patient have a stroke diagnosis?: No VTE Prior VTE?: No VTE Risk Level:: Medical - moderate - high VTE Device Contraindication: N/A - Device Ordered VTE Drug Contraindication: Treatment Not Indicated
[2023-03-29 04:00] VITALS: BP 110/58; PULSE 72; RESP 16; TEMP 36; O2SAT 93
[2023-03-29 05:39] LABS: MANUAL DIFF FLAG NO
[2023-03-29 05:41] LABS: Basophils Absolute Auto 0.1 X10*3/uL (0.0-0.2); Basophils Percent Auto 0.5 % (0-2); Eosinophils Absolute Auto 0.1 X10*3/uL (0.0-0.4); Eosinophils Percent Auto 0.5 % (0-4); Hematocrit 34.9 % (37.0-47.0); Hemoglobin 11.5 g/dl (12.0-16.0); Imm Gran Abs Auto 0.02 X10*3/uL (0.00-0.03); Imm Gran Pct Auto 0.2 % (0.0-0.4); Lymphocytes Absolute Auto 1.9 X10*3/uL (1.2-4.9); Lymphocytes Percent Auto 19.3 % (20-40); Mean Corpuscular Hemoglobin 27.7 pg (27.0-33.0); Mean Corpuscular Volume 84.1 fL (80.0-98.0); Monocytes Absolute Auto 0.8 X10*3/uL (0.1-1.2); Monocytes Percent Auto 8.2 % (2-11); Neutrophils Absolute Auto 6.9 x10*3/uL (2.0-8.3); Neutrophils Percent Auto 71.3 % (45-73); Platelet Count 254 X10*3/uL (160-400); Red Blood Count 4.15 X10*6/uL (4.20-5.50); Red Cell Distribution Width 12.2 % (11.0-16.0); White Blood Count 9.7 X10*3/uL (4.8-10.8)
[2023-03-29 05:58] LABS: Anion Gap 11 (12-20); Blood Urea Nitrogen 8 mg/dL (9-16); Calcium 8.5 mg/dL (8.4-10.2); Carbon Dioxide 22 mmol/L (22-29); Chloride 103 mmol/L (96-108); Creatinine Clr Calc Pharmacy 95.2; Estimated Glomerular Filt Rate > 60; Glucose Random 97 mg/dL (60-115); Potassium 3.8 mmol/L (3.3-5.1); Sodium 132 mmol/L (135-145)
[2023-03-29 07:42] VITALS: BP 114/58; PULSE 80; RESP 16; TEMP 36.4; O2SAT 96
--- NOTE | 2023-03-29 08:58 | HO.PM.IMPN ---
Subjective Subjective Date of Service: 03/29/23 Interval History: f/u on vertigo persistent vertigo. headache Physical Exam Vital Signs: Vital Signs: Last Vital Signs Temp 97.6 F 03/29/23 07:42 Pulse 80 03/29/23 07:42 Resp 16 03/29/23 07:42 BP 114/58 L 03/29/23 07:42 Pulse Ox 96 03/29/23 07:42 O2 Del Method Room Air 03/29/23 07:42 BMI result Body Mass Index 38.0 Const: Other: General: AO X 3, no acute distress Heent: no nystagmus Resp: CTA bilateral CVS: S1,S2,RRR GI: +BS, NT, no distention Skin: No rash Neuro: motor grossly intact Psych: appropriate affect Objective Data Active Medications Acetaminophen (Acetaminophen 325 Mg Tablet) 650 mg PO Q6H PRN PRN Reason: Pain, Mild (Pain Scale 1-3) Albuterol Sulfate (Albuterol Sulfate (0.083%) 2.5 Mg/3 Ml Vial.Neb) 2.5 mg INHALE Q4H PRN PRN Reason: for wheezing Albuterol Sulfate (Albuterol Sulfate 90 Mcg 8 Gm Inhaler) 2 puff INHALE Q6H PRN PRN Reason: for wheezing Atenolol (Atenolol 25 Mg Tablet) 25 mg PO BID [facility]; Protocol Last Admin: 03/28/23 20:47 Dose: 25 mg Documented By: ARAMIS Docusate Sodium (Docusate Sodium 100 Mg Capsule) 100 mg PO DAILY PRN PRN Reason: Constipation Last Admin: 03/28/23 20:47 Dose: 100 mg Documented By: ARAMIS Famotidine (Famotidine/Pf 20 Mg/2 Ml Vial) 20 mg IVPUSH BID [facility] Last Admin: 03/29/23 08:55 Dose: 20 mg Documented By: JENNIE Dextrose/Sodium Chloride (D51/2ns) 1,000 mls @ 125 mls/hr IVCONT .Q8H [facility] Lisinopril (Lisinopril 10 Mg Tablet) 10 mg PO DAILY [facility]; Protocol Meclizine HCl (Meclizine Hcl 25 Mg Tablet) 25 mg PO Q6H PRN PRN Reason: Vertigo Last Admin: 03/29/23 03:41 Dose: 25 mg Documented By: ARAMIS Multivitamins/Vitamin C (Multivitamin Tablet) 1 tab PO DAILY [facility] Non-Formulary Medication (Ywqwmhhrmu-Vfjbxkpg-Ojdvbsethf [Breztri Aerosphere]) 2 inhalation PO BID [facility] Non-Formulary Medication (Roflumilast [Daliresp]) 500 mcg PO DAILY [facility] Ondansetron HCl (Ondansetron Hcl 4 Mg/2 Ml Vial) 4 mg IVPUSH Q8H PRN PRN Reason: Nausea and Vomiting Last Admin: 03/29/23 08:55 Dose: 4 mg Documented By: JENNIE Spironolactone (Spironolactone 25 Mg Tablet) 50 mg PO BID [facility]; Protocol Last Admin: 03/28/23 20:47 Dose: 50 mg Documented By: ARAMIS Thyroid (Thyroid,Pork 30 Mg Tablet) 180 mg PO DAILY [facility] Labs 03/29/23 05:22 03/29/23 05:22 Labs: Laboratory Results - last 24 hr 03/28/23 03/28/23 03/28/23 16:10 16:10 16:10 MCV MCH MCHC RDW Plt Count MPV Immature Gran % (Auto) Neut % (Auto) Lymph % (Auto) [place] % (Auto) Eos % (Auto) Baso % (Auto) Lymph # (Auto) [place] # (Auto) Eos # (Auto) Baso # (Auto) Abs Immat Gran (auto) Absolute Neuts (auto) Absolute Nucleated RBC Nucleated RBC % (auto) Anion Gap Estim Creat Clear Calc Estimated GFR Random Glucose Calcium CSF Tube Number 1 4 CSF Volume 1.0 CSF Appearance CLEAR CSF Color COLORLESS CSF WBC 0 CSF RBC 2 CSF Appearance (b) Clear, Colorless CSF Total Protein 21.7 CSF C.neoform/gat PCR Not Detected CSF CMV DNA (PCR) Not Detected CSF Enterovirus (PCR) Not Detected CSF E. coli K1 (PCR) Not Detected CSF H. influenzae (PCR) Not Detected CSF HSV I (PCR) Not Detected CSF HSV II (PCR) Not Detected CSF HHV 6 (PCR) Not Detected CSF L.monocytogenes PCR Not Detected CSF N. meningitidis PCR Not Detected CSF Parechovirus (PCR) Not Detected CSF S. agalactiae (PCR) Not Detected CSF S. pneumoniae (PCR) Not Detected CSF VZV (PCR) Not Detected 03/29/23 03/29/23 05:22 05:22 MCV 84.1 MCH 27.7 MCHC 33.0 RDW 12.2 Plt Count 254 MPV 9.0 L Immature Gran % (Auto) 0.2 Neut % (Auto) 71.3 Lymph % (Auto) 19.3 L [place] % (Auto) 8.2 Eos % (Auto) 0.5 Baso % (Auto) 0.5 Lymph # (Auto) 1.9 [place] # (Auto) 0.8 Eos # (Auto) 0.1 Baso # (Auto) 0.1 Abs Immat Gran (auto) 0.02 Absolute Neuts (auto) 6.9 Absolute Nucleated RBC 0.000 Nucleated RBC % (auto) 0.0 Anion Gap 11 L Estim Creat Clear Calc 95.2 Estimated GFR > 60 Random Glucose 97 Calcium 8.5 D CSF Tube Number CSF Volume CSF Appearance CSF Color CSF WBC CSF RBC CSF Appearance (b) CSF Total Protein CSF C.neoform/gat PCR CSF CMV DNA (PCR) CSF Enterovirus (PCR) CSF E. coli K1 (PCR) CSF H. influenzae (PCR) CSF HSV I (PCR) CSF HSV II (PCR) CSF HHV 6 (PCR) CSF L.monocytogenes PCR CSF N. meningitidis PCR CSF Parechovirus (PCR) CSF S. agalactiae (PCR) CSF S. pneumoniae (PCR) CSF VZV (PCR) Microbiology Microbiology Results: Microbiology 03/28/23 16:10 Gram Stain - Final Cerebrospinal Fluid CSF Examination - Final Fluid Description - Final Assessment and Plan (1) Vertigo: Status: Acute Plan 62-year-old female with history of hypothyroidism with history of Graves disease s/p CARL, hypogammaglobinemia, asthma/COPD overlap, hypertension, cervical spondylosis, splenic artery aneurysm, and chronic Lyme disease with history of trigeminal neurolalgia to be observed for intractable vertigo. #Intractable vertigo with nausea/vomiting, acute onset. LP unremarkable, MRA unremarkable. Suspect viral labyrinthitis -supportive care, IVF, Meclizine PRN #Headache--Tramadol or Toradol for pain # hypothyroidism -continue thyroid supplement # asthma/COPD overlap -no acute exacerbation -continue maintenance inhalers, albuterol p.r.n. # hypertension -reasonably controlled -continue lisinopril, atenolol #Acute hematemesis -likely 2/2 retching form vomiting -resolved DVT prophylaxis- SCPs Full code Time Spent With Patient Time: Total time managing care of this patient today ____ minutes. Quality Stroke Does the patient have a stroke diagnosis?: No VTE Prior VTE?: No VTE Risk Level:: Medical - moderate - high VTE Device Contraindication: N/A - Device Ordered VTE Drug Contraindication: Treatment Not Indicated
[2023-03-29 15:55] VITALS: BP 132/63; PULSE 65; RESP 20; TEMP 36; O2SAT 97
--- NOTE | 2023-03-29 16:23 | MHC.CM.PN ---
PT REPORTS SHE LIVES ALONE AND IS INDEPENDENT WITH CARE SHE HAS NO DME AND NO SERVICES SHE SAYS HER IS HER HCP, COPY REQUESTED PCP: [facility] NOTICE DELIVERED DCP: HOME NO SERVICES VIA PRIVATE TRANSPORT
[2023-03-29 19:49] VITALS: BP 119/57; PULSE 71; RESP 20; TEMP 36.3; O2SAT 93
[2023-03-30 04:00] VITALS: BP 113/56; PULSE 74; RESP 14; TEMP 36.2; O2SAT 94
[2023-03-30 08:00] VITALS: BP 132/63; PULSE 72; RESP 18; TEMP 36.1; O2SAT 94
--- NOTE | 2023-03-30 08:08 | HO.PM.IMPN ---
Subjective Subjective Date of Service: 03/30/23 Interval History: f/u on vertigo persistent vertigo. headache--but overall better than yesterday Physical Exam Vital Signs: Vital Signs: Last Vital Signs Temp 97.1 F 03/30/23 04:00 Pulse 74 03/30/23 04:00 Resp 14 03/30/23 04:00 BP 113/56 L 03/30/23 04:00 Pulse Ox 94 03/30/23 04:00 O2 Del Method Room Air 03/30/23 04:00 BMI result Body Mass Index 38.0 Const: Other: General: AO X 3, no acute distress Resp: CTA bilateral CVS: S1,S2,RRR GI: +BS, NT, no distention Skin: No rash Neuro: motor grossly intact Psych: appropriate affect Objective Data Active Medications Acetaminophen (Acetaminophen 325 Mg Tablet) 650 mg PO Q6H PRN PRN Reason: Pain, Mild (Pain Scale 1-3) Acetaminophen/Butalbital/Caffeine (Butalb/Acetamin/Caff 50/325/40 Tablet) 1 tab PO Q4H PRN PRN Reason: Headache Albuterol Sulfate (Albuterol Sulfate (0.083%) 2.5 Mg/3 Ml Vial.Neb) 2.5 mg INHALE Q4H PRN PRN Reason: for wheezing Albuterol Sulfate (Albuterol Sulfate 90 Mcg 8 Gm Inhaler) 2 puff INHALE Q6H PRN PRN Reason: for wheezing Atenolol (Atenolol 25 Mg Tablet) 25 mg PO BID REPLACED BY [facility]; Protocol Last Admin: 03/29/23 20:28 Dose: 25 mg Documented By: BALJINDER Docusate Sodium (Docusate Sodium 100 Mg Capsule) 100 mg PO DAILY PRN PRN Reason: Constipation Last Admin: 03/29/23 20:38 Dose: 100 mg Documented By: BALJINDER Famotidine (Famotidine/Pf 20 Mg/2 Ml Vial) 20 mg IVPUSH BID REPLACED BY [facility] Last Admin: 03/30/23 07:57 Dose: 20 mg Documented By: JENNIE Dextrose/Sodium Chloride (D51/2ns) 1,000 mls @ 125 mls/hr IVCONT .Q8H REPLACED BY [facility] Last Admin: 03/30/23 08:01 Dose: 125 mls/hr Documented By: JENNIE Ketorolac Tromethamine (Ketorolac Tromethamine 15 Mg/Ml Vial) 15 mg IVPUSH Q6H PRN PRN Reason: Headache Last Admin: 03/29/23 22:46 Dose: 15 mg Documented By: BALJINDER Lisinopril (Lisinopril 10 Mg Tablet) 10 mg PO DAILY REPLACED BY [facility]; Protocol Last Admin: 03/29/23 10:52 Dose: 10 mg Documented By: JENNIE Meclizine HCl (Meclizine Hcl 25 Mg Tablet) 25 mg PO Q6H PRN PRN Reason: Vertigo Last Admin: 03/29/23 22:46 Dose: 25 mg Documented By: BALJINDER Multivitamins/Vitamin C (Multivitamin Tablet) 1 tab PO DAILY REPLACED BY [facility] Last Admin: 03/29/23 10:53 Dose: 1 tab Documented By: JENNIE Pat Own Med ( Budesonide-Glycopyr- Formoterol [Breztri Aerosphere] 160-9-4. 8 Mc 2 inhalation PO BID REPLACED BY [facility] Last Admin: 03/29/23 20:29 Dose: 2 inhalation Documented By: BALJINDER Pimentel Own Med ( Roflumilast [ Daliresp] 500 Mcg Tablet) 500 mcg PO DAILY REPLACED BY [facility] Last Admin: 03/29/23 16:01 Dose: 500 mcg Documented By: BALJINDER Pt Own ([place] (Thyroid 3gr 180 Mg)) 180 mg PO DAILY@0600 REPLACED BY [facility] Last Admin: 03/30/23 06:40 Dose: 180 mg Documented By: JS Ondansetron HCl (Ondansetron Hcl 4 Mg/2 Ml Vial) 4 mg IVPUSH Q8H PRN PRN Reason: Nausea and Vomiting Last Admin: 03/30/23 07:57 Dose: 4 mg Documented By: JENNIE Spironolactone (Spironolactone 25 Mg Tablet) 50 mg PO BID REPLACED BY [facility]; Protocol Last Admin: 03/29/23 20:29 Dose: 50 mg Documented By: BALJINDER Labs 03/29/23 05:22 03/29/23 05:22 Microbiology Microbiology Results: Microbiology 03/28/23 16:10 Gram Stain - Final Cerebrospinal Fluid CSF Examination - Final Fluid Description - Final CSF Culture - Preliminary No growth to date. Assessment and Plan (1) Vertigo: Status: Acute Plan 62-year-old female with history of hypothyroidism with history of Graves disease s/p CARL, hypogammaglobinemia, asthma/COPD overlap, hypertension, cervical spondylosis, splenic artery aneurysm, and chronic Lyme disease with history of trigeminal neurolalgia to be observed for intractable vertigo. #Intractable vertigo with nausea/vomiting, acute onset. LP unremarkable, MRA unremarkable. Suspect viral labyrinthitis vs vestibular migraine -supportive care, IVF, Meclizine PRN, Imitrex seemed to help, #Headache--Try fiorocet today # hypothyroidism -continue thyroid supplement # asthma/COPD overlap -no acute exacerbation -continue maintenance inhalers, albuterol p.r.n. # hypertension -reasonably controlled -continue lisinopril, atenolol #Acute hematemesis -likely 2/2 retching form vomiting -resolved DVT prophylaxis- SCPs Full code need for inpt: intractable vertigo, unable to function at this time Time Spent With Patient Time: Total time managing care of this patient today ____ minutes. Quality Stroke Does the patient have a stroke diagnosis?: No VTE Prior VTE?: No VTE Risk Level:: Medical - moderate - high VTE Device Contraindication: N/A - Device Ordered VTE Drug Contraindication: Treatment Not Indicated
--- NOTE | 2023-03-30 11:06 | MHC.CM.PN ---
PER MD ROUNDS, PT EXPECTED TO DC OVER THE WEEKEND. DCP: HOME NO SERVICES VIA PRIVATE TRANSPORT
--- NOTE | 2023-03-30 14:27 | PC.NURSE ---
calixto cath removed at 1200. DTV #1 @ 1800.
[2023-03-30 15:51] VITALS: BP 123/68; PULSE 75; RESP 18; TEMP 36.1; O2SAT 96
[2023-03-30 19:56] VITALS: BP 126/81; PULSE 71; RESP 19; TEMP 36.3; O2SAT 96
[2023-03-31 03:43] VITALS: BP 122/62; PULSE 80; RESP 20; TEMP 36.5; O2SAT 95
[2023-03-31 07:31] VITALS: BP 140/65; PULSE 95; RESP 20; TEMP 36.6; O2SAT 98
--- NOTE | 2023-03-31 08:42 | PM.DS ---
DS: Providers Provider Date of Service: 03/31/23 Date of admission: 03/30/23 14:10 Primary care physician: Yahaira Brock MD Consults: 03/28/23 15:40 Consult to Neurology Routine Consulting Provider: [facility] Reason for consultation: intractable vertigo DS: Diagnosis Discharge Diagnosis (1) Vertigo: Status: Acute DS: Summary Hospital Course Hospital Course: Chief Complaint: vertigo, n/v 62-year-old female with history of hypothyroidism with history of Graves disease s/p CARL, hypogammaglobinemia, asthma/COPD overlap, hypertension, cervical spondylosis, splenic artery aneurysm, and chronic Lyme disease with history of trigeminal neurolalgia presented to the ED earlier today for evaluation of intractable vertigo with associated nausea and vomiting.? She states that around 04:00 she woke up and attempted to stand and felt an intense room spinning sensation and became hot and diaphoretic.? The vertigo has been constant since then and improves slightly when she closes her eyes.? She has also felt generally weak though feels the right side may be weaker than the left.? She has had recurrent vomiting episodes including in the hospital with vomitus that has a brown/red tinge.? She states prior to symptom onset she did have an occipital headache/neck pain described as a dull ache.? She is denies any alcohol use, illicit drug use, or cigarette smoking.? She states currently the vertigo persists and she feels quite nauseous though this has improved with the medications administered in the ED including famotidine, meclizine, Reglan, Valium, and ondansetron.? She was also given 1 L IVF.? Since arrival, vital stable.? Hematology studies unremarkable.? Renal function and electrolyte levels normal.? Glucose 166.? Troponin below detectable limits.? Urinalysis unremarkable.? Gastric occult blood was positive.? Ethyl alcohol level undetectable.? CT abdomen/pelvis is negative for any acute intra-abdominal abnormality.? CTA of the head/neck shows questionable linear filling defect within the midportion of the basilar artery and is otherwise unremarkable.? No LVO seen.? She was evaluated in the ED by Neurology recommending MRI/MRA of the brain for further evaluation.? MRI/MRA of the brain showed a few scattered chronic small vessel ischemic changes within the periventricular white matter but was otherwise unremarkable without any evidence of acute territorial infarct or hemorrhage.? MRA was normal with normal flow related signal within the basilar artery and no identifiable defect.? Suspect CTA abnormalities for presenting artifact.? Discuss case further with Neurology, given intractable symptoms patient will be admitted for further observation and lumbar puncture. Hospital course: Patient presented nausea, vomitting, vertigo and weakness on right side. CTA of head and neck showed a questionable linear filling defect within the midportion of the basilar artery an MRI/MRA of head was subsequent done and was unremarkable. She was seen by Neuroligst Dr. Mann with working diagnosis of vestibular migraine and was treated symptomatically with Imitrex and Fiorocet for headache, Meclizine for vertigo, and antiemtics for nausea and vomitting, overall is better, vertigo resolved and headache is controlled but feels generally drained out. Will discharge with PRN Meclizine for vertigo, Fiorocet for headache and to follow up with Dr. Mann on outaptient basis. She is comfortagble going home. Time Spent with Patient Time attestation: Total time managing care of this patient today ____ minutes. Discharge coordination time: Greater than 30 minutes Quality: Safe Use of Opioids Does Pt have an Active Cancer Diagnosis on the Problem List?: No Quality: Stroke Does the patient have a stroke diagnosis?: No Physical Exam Vital Signs: Vital Signs: Last Vital Signs Temp 97.9 F 03/31/23 07:31 Pulse 95 03/31/23 07:31 Resp 20 03/31/23 07:31 BP 140/65 H 03/31/23 07:31 Pulse Ox 98 03/31/23 07:31 O2 Del Method Room Air 03/31/23 07:31 O2 Flow Rate 97 03/31/23 07:31 BMI result Body Mass Index 38.0 Const: Other: General: AO X 3, no acute distress Resp: CTA bilateral CVS: S1,S2,RRR GI: +BS, NT, no distention Skin: No rash Neuro: motor grossly intact, no nystagmus Psych: appropriate affect DS: Data Data Completed and Pending Labs on day of discharge: Laboratory Results - last 24 hr 03/28/23 16:39 Lyme Screen IgG & IgM <0.90 Preliminary micro results at discharge 03/28/23 16:10 CSF Culture - Preliminary Cerebrospinal Fluid No growth after 1 day Discharge Plan Discharge Anticipated Discharge Date/Time: 03/31/23 07:17 Patient Disposition: Home, Self-Care Discharge Diagnosis: Vertigo, vestibular migraine Referrals: Yahaira Brock MD [Primary Care Provider] - 1 Week Discharge Medications: New pooytyymlr-qkniwfjmqeyxj-cwaa 50-325-40 mg Tablet 1 tab PO Q4H PRN (Reason: Headache) Qty: 20 0RF meclizine 25 mg Tablet 25 mg PO Q6H PRN (Reason: Vertigo) Qty: 14 0RF Continued albuterol sulfate 2.5 mg /3 mL (0.083 %) solution for nebulization 2.5 mg inhalation Q4H PRN (Reason: for wheezing) Qty: 90 0RF spironolactone 50 mg tablet 50 mg PO BID Qty: 180 3RF roflumilast [Daliresp] 500 mcg tablet 500 mcg PO DAILY 30 Days Qty: 30 11RF albuterol sulfate 90 mcg/actuation HFA aerosol inhaler 2 puff PO Q6H PRN (Reason: for wheezing) Qty: 1 0RF Breztri Aerosphere 160-9-4.8 mcg/actuation HFA aerosol inhaler 2 inh PO BID Qty: 10.7 0RF multivitamin Tablet 1 tab PO DAILY atenolol 25 mg tablet 25 mg PO BID lisinopril 10 mg tablet 10 mg PO DAILY Qty: 30 0RF thyroid (pork) 180 mg tablet 180 mg PO DAILY Qty: 90 3RF (DME) nebulizers Misc See Rx Instructions .ROUTE Rx Instructions: As directed Discharge Orders: Discharge Order (Routine); Ordered 03/31/23 Ordered By: Femi Quinteros Diet: Advance to usual diet Activity on Discharge: As tolerated Stand Alone Forms: Patient Portal Discharge page Care Plan Goals: full recovery from vertigo and headache Health Concerns: vestibular migraine, vertigo Plan of Treatment: take Meclizine as directed for dizziness, fiorocet for headach follow up with your doctor in a week, follow up with Dr. Mann (Neurologist) in 2 weeks Assessment: as above
--- NOTE | 2023-03-31 09:20 | MHC.CM.PN ---
pt belkys d home no skilled servceis ordered by
[2023-04-06 12:53] LABS: A. Phagocytophilum Ab IgG <1:64 (<1:64); A. Phagocytophilum Ab IgM <1:20 (<1:20); E. Chaffeensis Ab IgG <1:64 (<1:64); E. Chaffeensis Ab IgM <1:20 (<1:20)
[2023-04-07 10:44] LABS: Babesia IgG <1:64 titer (<1:64); Babesia IgM <1:20 titer (<1:20)
== END 2023-03-31 10:42 | disposition home or self-care (01) | DRG 103 ==
LOC: HO.ED 10:23 → HO.EDOVER 15:48 → HO.S3 17:27
PROVIDERS: Admitting Provider Physician Assistant; Emergency Provider Emergency Medicine; PCP Internal Medicine; Visit Provider Internal Medicine
DX: G43.809 Other migraine, not intractable, without status migrainosus (principal); K92.0 Hematemesis; H83.09 Labyrinthitis, unspecified ear; E03.9 Hypothyroidism, unspecified; M47.812 Spondylosis without myelopathy or radiculopathy, cervical region; F32.9 Major depressive disorder, single episode, unspecified; I10 Essential (primary) hypertension; J44.9 Chronic obstructive pulmonary disease, unspecified; Z79.890 Hormone replacement therapy; Z79.899 Other long term (current) drug therapy
CPT/HCPCS: 36415; 70496; 70498; 70544; 70551; 74176; 80048; 80053; 80307; 81003; 82271; 83690; 83735; 84157; 84484; 85025; 85610; 85730; 86617; 86618; 86666; 86753; 86850; 86900; 86901; 87015; 87070; 87205; 87483; 89051; 99221; 99285; C1758; J1885; J2405; J2550; J2765; J3360; Q9967

== ENCOUNTER 2023-04-02 11:30 | Outpatient (AMB) | payer MEDICARE, SELFPAY ==
--- NOTE | 2023-04-02 12:39 | MHC.OFFWIV ---
Intake Vital Signs 04/02/23 12:47 Height 5 ft 5 in BP 132/72 Blood Pressure Location Rt brachial Position Sitting Pulse 75 Pulse Source Pulse Oximeter Temp 96.8 F Temp Source Temporal Artery Scan Pulse Oximetry (%) 98 Oxygen Delivery Method Room Air Intake Visit Reasons: EP, Blood in Urine Intake Note: Pt is here c/o possible blood in urine. Patient Tobacco Use Status: Never used Tobacco Allergies No Known Allergies Allergy (Mild, Verified 04/02/23 12:47) NOT APPLICABLE Do you need a note to return to daycare/school/sports/work: No HPI EP, Blood in Urine HPI Details Patient presents with blood in urine and some burning with urination. She was discharged from the hospital yesterday where she had been catheterized due to diagnosis of vestibular migraine and she could not get out of bed to urinate. Her migraine is slowly improving she is still having some dizziness with nausea. She notes she forgot to tell the doctor she would need nausea medication at home as she did not have any in the hospital due to getting it through IV. She has follow-up with Neurology in 2 weeks in Intensive make her PCP follow-up today. She notes she discontinued her lisinopril due to annoying cough. [facility] Medical History (Updated 03/28/23 @ 17:33 by ROLAND Dupree) Asthma Asthma-COPD overlap syndrome Cervical spondylosis Graves disease HTN (hypertension) Hyperglycemia Hypogammaglobulinemia Hypothyroidism Lyme disease Major depressive disorder Splenic artery aneurysm Surgical History History of hysterectomy Social History Household Members: Spouse Housing: House Do you presently have visiting nurse or other home services: No Alcohol intake: never Patient Tobacco Use Status: Never used Tobacco service: No Review of Systems Const Reports as per HPI and Reports no additional complaints ENT Reports no additional complaints and Reports as per HPI GI Reports as per HPI and Reports no additional complaints Reports as per HPI Neuro Reports no additional complaints and Reports as per HPI Physical Exam Vital Signs: Last Vital Signs Temp 96.8 F 04/02/23 12:47 Pulse 75 04/02/23 12:47 BP 132/72 04/02/23 12:47 Pulse Ox 98 04/02/23 12:47 Oxygen Delivery Method Room Air 04/02/23 12:47 Const General: cooperative, comfortable and no acute distress Orientation/consciousness: patient oriented x3 Resp Effort & Inspection: normal respiratory effort Auscultation: clear to auscultation bilaterally Cardio Rate: regular rate Rhythm: regular rhythm Heart sounds: S1 normal heart sound present and S2 normal heart sound present General: Yes no CVA tenderness Back/Spine/Pelvis Back: no CVA tenderness Neuro Other: Uses walker today due to vertigo which is improving she notes. General: patient oriented x3 and CN's II-XI intact bilaterally Extrem General: Yes no pedal edema Results AMB Urinalysis, Automated UA Leukoctes 15 Dave/uL Last Edit by Ava Will CMA on 04/02/23 12:51 UA Nitrite Negative Last Edit by Ava Will CMA on 04/02/23 12:51 UA Urobilinogen 0.2 mg/dL Last Edit by Ava Will CMA on 04/02/23 12:51 UA Protein 0 mg/dL Last Edit by Ava Will CMA on 04/02/23 12:51 UA pH 7.5 Last Edit by Ava Will CMA on 04/02/23 12:51 UA Blood 200 Bradley/uL Last Edit by Ava Will CMA on 04/02/23 12:51 UA Specific [place] 1.015 Last Edit by Ava Will CMA on 04/02/23 12:51 UA Ketone Negative Last Edit by Ava Will CMA on 04/02/23 12:51 UA Bilirubin 0 mg/dL Last Edit by Ava Will CMA on 04/02/23 12:51 UA Glucose 0 mg/dL Last Edit by Ava Will CMA on 04/02/23 12:51 Results Reviewed Results Reviewed: Laboratory Last Values Urine pH (Auto) 7.5 04/02/23 12:50 Specific [place] (Auto) 1.015 04/02/23 12:50 Urine Protein (Auto) 0 mg/dL 04/02/23 12:50 Glucose (UA)(Auto) 0 mg/dL 04/02/23 12:50 Urine Ketones (Auto) Negative 04/02/23 12:50 Urine Blood (Auto) 200 Bradley/uL 04/02/23 12:50 Urine Nitrite (Auto) Negative 04/02/23 12:50 Urine Bilirubin (Auto) 0 mg/dL 04/02/23 12:50 Urine Urobilinogen (Auto) 0.2 mg/dL 04/02/23 12:50 Leukocyte Esterase (Auto) 15 Dave/uL 04/02/23 12:50 Assessment & Plan Assessment & Plan (1) Dysuria: Code(s): R30.0 - Dysuria Plan: Given she was catheterized will treat with Macrobid. Advised to return to clinic if symptoms do not improve or should have follow-up with PCP in the near term given recent hospitalization. ER if symptoms become severe or she develops fever abdominal pain or worsening of her current vestibular migraine symptoms. (2) Nausea: Code(s): R11.0 - Nausea Plan: Rx Zofran for nausea this was helpful to her while inpatient in hospital. Keep follow-up with PCP for post hospital visit. Orders: Orders AMB Urinalysis Automated Today Z13.9 - Encounter for screening, unspecified Jaun Gracia MD Medications: New nitrofurantoin monohyd/m-cryst 100 mg (Macrobid) must administer with a meal/food 100 mg PO Q12H 10 caps 0RF 5 days ROLAND Brewer Coding Level of Care Code Est Pt Level 3 (82903) Diagnoses Dysuria R30.0 Nausea R11.0
[2023-04-02 12:47] VITALS: BP 132/72; PULSE 75; TEMP 36; O2SAT 98
== END 2023-04-02 13:32 | disposition home or self-care (01) ==
PROVIDERS: PCP Internal Medicine; Visit Provider Physician Assistant
DX: R30.0 Dysuria (principal); R11.0 Nausea; Z13.9 Encounter for screening, unspecified
CPT/HCPCS: 81003; 99213

== ENCOUNTER 2023-04-10 11:53 | Outpatient (AMB) | payer MEDICARE, SELFPAY ==
[2023-04-10 11:58] VITALS: BP 136/70; PULSE 84; O2SAT 98; BMI 36.6
--- NOTE | 2023-04-10 11:58 | A.OFFPC_ITS ---
Vital Signs 04/10/23 11:58 Height 5 ft 5 in Weight 220 lb BMI 36.6 BP 136/70 Blood Pressure Location Rt brachial Position Sitting Pulse 84 Pulse Source Pulse Oximeter Pulse Oximetry (%) 98 Oxygen Delivery Method Room Air Intake Visit Reasons: vestibular migraines/suspected TIA Intake Note: pt is here for vestibular migraines and [place] [facility] lisinopril Adverse Reaction (Intermediate, Verified 04/10/23 12:33) cough Tobacco use date assessed: 04/10/23 Dental Screening Dental Screen Date: 04/10/23 Did you have a dental visit in the last 12 months?: No Did you have a dental problem in the last 6 months where you did not have access to dental care?: No Was dental information given to patient?: Patient has dentist HPI vestibular migraines/suspected TIA HPI Details Pt presents for f/u hospitalization for vestibular migraine/vertigo. Brain MRA was negative. Pt feels better but still waking with walker because of unsteadiness of her gait. Pt has f/u with neurology. Meclizine causing drowsiness. Patient complains of sinus congestion and facial pain increase in chronic postnasal drip. Patient denies fever chills has intermittent cough but no shortness of breath. Asthma is stable on inhalers. [facility] Medical History (Updated 04/10/23 @ 12:41 by Yahaira Brock MD) Asthma Asthma-COPD overlap syndrome Cervical spondylosis Graves disease HTN (hypertension) Hyperglycemia Hypogammaglobulinemia Hypothyroidism Lyme disease Major depressive disorder Splenic artery aneurysm Surgical History History of hysterectomy Family History (Updated 04/10/23 @ 12:03 by Cee Hull CMA) Father Substance use disorder Mental health disorder Social History Household Members: Spouse Housing: House Do you presently have visiting nurse or other home services: No Alcohol intake: never Patient Tobacco Use Status: Never used Tobacco e-Cigarette/Vaping Use: Never Used Second Hand Smoke Exposure: No service: No Cognitive needs: Yes Hearing needs: No Vision needs: No Questionnaire Thrive Questionnaire Date Thrive assessed: 03/30/23 ELIOT-7 AMB Questionnaire ELIOT-7 Date ELIOT - 7 assessed: 11/10/21 Source: Developed by Drs. James Moran, Mary Lou Moctezuma, Les Lujan and colleagues, with an educational joseluis from [employer]. Review of Systems Const All systems reviewed & are unremarkable except as noted in HPI and below Reports no additional complaints Eyes Reports no additional complaints ENT Reports no additional complaints Card Reports no additional complaints Resp Reports no additional complaints GI Reports no additional complaints Reports no additional complaints Physical exam (Primary Care) Vital Signs: Last Vital Signs Pulse 84 04/10/23 11:58 BP 136/70 04/10/23 11:58 Pulse Ox 98 04/10/23 11:58 Oxygen Delivery Method Room Air 04/10/23 11:58 BMI result Body Mass Index 36.6 Tobacco/Smoking Status: Tobacco use Status Tobacco use date assessed 04/10/23 04/10/23 12:04 Patient Tobacco Use Status Never used Tobacco 04/10/23 12:04 e-Cigarette/Vaping Use Never Used 04/10/23 12:04 Thrive Assessment: Date of Thrive Assessment Date Thrive assessed 03/30/23 04/10/23 12:04 Const General: no acute distress HENMT Head: Yes normal to inspection Face and sinus: Yes normal facial exam and Yes sinus tenderness Throat: Yes postnasal drainage Eyes General: appearance normal, both eyes and all related structures Neck Neck: Yes supple Resp Effort & Inspection: normal respiratory effort Auscultation: clear to auscultation bilaterally Cardio Rhythm: regular rhythm Heart sounds: S1 normal heart sound present and S2 normal heart sound present GI Auscultation: normal bowel sounds Neuro Cranial nerves: Yes CN's II-XII intact bilaterally Motor exam (neuro): 5/5 motor strength present throughout Coordination: jjrhiz-bx-pjsw test normal Romberg Test: Negative Assessment and Plan Assessment & Plan (1) Vertigo: Code(s): R42 - Dizziness and giddiness Plan: Referred to physical therapy, follow-up with Neurology (2) Asthma-COPD overlap syndrome: Code(s): J44.9 - Chronic obstructive pulmonary disease, unspecified Plan: Continue current treatment (3) Hypothyroidism: Code(s): E03.9 - Hypothyroidism, unspecified Plan: Continue levothyroxine (4) Sinusitis: Code(s): J32.9 - Chronic sinusitis, unspecified Plan: Z-Jonathan as prescribed and supportive care discussed with the patient, montelukast will be added to antihistamine for chronic allergic rhinitis Orders: Orders PT Evaluation and Treatment Today G43.809 - Other migraine, not intractable, without status migrainosus, R42 - Dizziness and giddiness Medications: New montelukast 10 mg PO DAILY 90 tabs 0RF azithromycin For 250 mg dose pack: take 500 mg today (day 1), then 250 mg for 4 days (days 2-5) PO 6 tabs 0RF Coding Level of Care Code Est Pt Level 4 (28653) Diagnoses Vertigo R42 Asthma-COPD overlap syndrome J44.9 Hypothyroidism E03.9 Sinusitis J32.9
== END 2023-04-10 12:51 | disposition home or self-care (01) ==
PROVIDERS: PCP Internal Medicine; Visit Provider Internal Medicine
DX: R42 Dizziness and giddiness (principal); J44.9 Chronic obstructive pulmonary disease, unspecified; E03.9 Hypothyroidism, unspecified; J32.9 Chronic sinusitis, unspecified
CPT/HCPCS: 99214

== ENCOUNTER 2023-04-23 12:56 | Outpatient (RCR) | payer MEDICARE, SELFPAY ==
[2023-04-23 13:03] VITALS: BP 120/61; PULSE 84
--- NOTE | 2023-04-23 14:03 | MHC.PT.EP ---
[facility] [place] [facility] [place] Office [address] Lindsay Romero [address] [phone] F: [phone] F: [phone] F: [phone] F: [phone] Physical Therapy Plan of Care Date of Evaluation: Date of Surgery: NA Diagnosis: Dizziness and giddiness Vestibular migraines Assessment: Desirae is a 62 year old female who is referred to PT for dizziness and giddiness and vestibular migraines . She reports of having sudden onset of room spinning dizziness about 1 month back which brought her to the ED. 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 She was diagnosed with vestibular neuritis/ and migraines. She reports that her symptoms have gotten better but still has dizziness with looking up or down, rolling in bed, watching TV, driving and sudden head turns. She also reports of having nausea. Her symptoms last only for a few seconds. On PT examination she presented with impaired static and dynamic balance, negative for BPPV and impaired gait. She lives with her and is independent with self care activities but need assistance for IADLS. She would benefit from skilled PT to address the aforementioned impairments and improve tolerance to functional activities. Frequency and Duration: The patient will be seen 2/week for 6 weeks Short Term Goals: 1. Pt will report of having 50% decrease in intensity of dizziness which will enable her to get up from the bed without feeling dizzy in 3 weeks Prison Goals: 1. Pt will be able to drive without any symptoms of dizziness in 6 weeks 2. Patient to be able to functionally move in all planes and directions without provocation of dizziness to show return to PLOF in 6 weeks. Treatment Plan: Modalities to reduce pain, spasms and effusion. Manual therapy to restore motion and function. Therapeutic exercise to improve strength and flexibility. Neuromuscular re-education for posture and balance. Therapeutic activities to return to functional activities of daily living. Electronically signed by: Chelsea Li PT DPT Please sign and return to therapist. Thank you for your referral.
--- NOTE | 2023-05-11 13:51 | MHC.PT.DC ---
[facility] [place] Office [place] Office [place] Office [address] Lindsay Romero [address] [phone] F: [phone] F: [phone] F: [phone] F: [phone] Physical Therapy Discharge Report Diagnosis: Dizziness and giddiness Vestibular migraines Date of Surgery: NA Date of Evaluation: 04/23/23 Date of Discharge: 05/11/23 Treatments to Date: 1 Cancellations to Date: 0 No Shows to Date: 2 Discharge Status: Visit Non-compliance Discharge Summary: Desirae sutton showed for 2 appointments after her evaluation. She is therefore d/c from PT for non compliance based on her our attendance policy. Electronically signed by: Chelsea Li PT DPT Please sign and return to therapist. Thank you for your referral.
== END 2023-05-11 13:51 | disposition home or self-care (01) ==
LOC: HO.PT 12:56
PROVIDERS: PCP Internal Medicine; Visit Provider Internal Medicine
DX: R42 Dizziness and giddiness (principal); G43.809 Other migraine, not intractable, without status migrainosus
CPT/HCPCS: 97112; 97161

== ENCOUNTER 2023-06-14 15:40 | Outpatient (AMB) | payer MEDICARE, SELFPAY ==
[2023-06-14 15:50] VITALS: PULSE 75; O2SAT 96; BMI 35.3
--- NOTE | 2023-06-14 15:50 | A.OFFVIS_ITS ---
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 Apparently back in 2007 she an asthma exacerbation and respiratory failure requiring hospital level of care. She did have a CT scan of the chest at that time demonstrating some slight interstitial changes specially at the bases. After that she had been well and she did have abnormal IgG levels and up some point she did go to [place] for evaluation of hypogammaglobulinemia and she was recommended to start IgG therapy which she did not. At some 0.2 she was diagnos ed with Lyme in addition to meningitis and she has been treated for that. More recently in December she started developing worsening respiratory complaints she went to an urgent care where she was diagnosed with bilateral pneumonia and treated with Z-Jonathan and also prednisone blast. Her symptoms persisted and she went back after weak and she was again given a course of levofloxacin and another course of prednisone 50 mg for 5 days. Again her symptoms partially improves but then re-occurred she went to the ER at [facility] which she had an x-ray which was abnormal for some opacity in the left base. She has had covid testing x2 which have been both negative. Her eosinophils with the only thing that been elevated suggesting as eosinophilic reaction. On further questioning her started making some construction and demolition in the home due to knee keep type findings significant amount of mold behind the dry wall. At this point her stopped the construction due to her symptoms. There could have a professional handle the mold issue. She is responding well to the regimen of Symbicort and Singulair and allergy medicine. Her also stop working on the house as there was significant mold. She is looking to see if we can mediated the mold but is very expensive. Which still waiting for her rast and hypersensitivity panel. Her blood work does demonstrate a decrease IgG subclass 1 but a total IgG level does within normal. Otherwise her laboratories were relatively unremarkable. I will make does test available to her once I reviewed them. In the meantime she is to avoid all mold exposures. 09/06/2020 the patient is here for pulmonary follow-up visit. Overall she has been doing okay. She has been noticing increasing congestion. She does complaint of sinus headaches and also nasal congestion. Moderate severity. She is concerned that is going to the involving to another infection. Again we looked at her blood work demonstrating a low normal total IgG level but he decrease subclass 1 IgG level. Her IgE levels also slightly decreased. The patient also had allergy testing without any significant findings. The patient would benefit from going for an allergy evaluation for both the immunology issues in the allergy issues. I recommend she goes to Dr. rossi. In the meantime she is going to continue with respiratory therapy. She will be treated for sinusitis. If she has issues with the current upper or lower respiratory infections we can consider suppression therapy with macrolide therapy. 10/13/2020 the patient has a telephone visit. Overall the patient has been doing relatively okay. Initially she went to see the main precision lens generator and had a lot of blood work done. She was having hard time with her breathing and was coughing and therefore the patient was placed on prednisone. This is the 4th time issues is prednisone and actually made her feel much better. She also has been on the doxycycline. That has not been very helpful. His she will be following up with Neurology soon to discuss her findings. In addition to that the patient continues to have productive cough with clear mucus. Denies any hemoptysis. Likely complete pulmonary of chronic bronchitis. Therefore, will switch over to azithromycin Sunday to see if does more effective for the patient. Also for the chronic bronchitis in her multiple use of prednisone she may be a good candidate for Daliresp. The patient did have a previous CT scan of the chest and also chest x-ray but nothing recent. Plan to do an x-ray prior to the next visit. 03/08/2021 the patient is here for pulmonary follow-up visit. Overall the patient has been doing about the same. Having frequent episodes of wheezing and chest tightness. Recently she has completed another course of prednisone. She did follow-up with Allergy and immunology and did recommend Dupixent is a good option for the patient. She does have significant allergies to her for her mental and mold. In addition to that her IgG level total was low and she is being evaluated for the hypogammaglobulinemia at this time. She has responded well to the azithromycin 3 times a week in his capped getting frequent infections. At this point she would like to continue this medication. She also continues to Symbicort twice a day in addition to her singular. 10/27/2021 the patient is here for a pulmonary follow-up visit. Apparently the patient had been doing very well for the last several months but then started having increasing respiratory symptoms for the last several days. Apparently she was on Dupixent and Dupixent was initially very helpful. However, she started noticing significant amount of weight gain. And ultimately did not feel like the Dupixent was effective in longer. Ultimately she decided to come off the medication. She has been following closely with Allergy and immunology. The patient has been evaluated for hypogammaglobulinemia. Her ins urance did recheck her initiation of IVIG. Currently she needs to go back to have her vaccine challenge done to see if the patient is able to mount a response to the vaccine and see if she has a candidate for IVIG. In the meantime she is using prophylactic antibiotics with azithromycin. Now she has been noticing increasing nasal congestion and fullness in sinus pressure. She has significant postnasal drip and hernandez is drainage. The patient also has been coughing is having increasing chest pressure sensation. She has been on Symbicort now for some time. Therefore will go ahead and optimize respiratory therapy by switching over to a triple agent. In the meantime the patient also was start a course of Augmentin and prednisone if she is not any better. We also discussed other biologic therapies. If the patient does not improve after optimizing her respiratory therapy will be reasonable to recheck her CBC with differential assess her eosinophilic count. Her eosinophils were elevated in the past. She may be a candidate for IL 5 inhibitors. 12/14/3022 The patient is here for a pulmonary follow-up visit. Apparently the patient had been doing very well for the last several months but then started having increasing respiratory symptoms for the last several days.Has been having worsening wheezing.She has continued to require prednisone tapers. She is already optimized respiratory therapy with only partial improvement. She would be a great candidate for Daliresp. We will start the 250mcg dose. She will call when she is ready for the 500mcg dose. 06/14/2023 the patient is here for a pulmonary follow-up visit. The patient overall doing a lot better. She responded very well to the Daliresp and I will send day medication to the pharmacy again. She also continues on her respiratory therapy. She is still having allergy symptoms and she does want to go back to her precision lens generator. Therefore I will make a referral at this time. She may be a good candidate for now 5 inhibitor if she continues to be symptomatic. She has not required prednisone which is reassuring. We did review her CT scan of the abdomen that she had over the summer. Appears that she has some atelectasis at the bases. This was new when compared to a CT scan from 2021. Likely atelectasis from the fact that she was more bed-bound when she had a CT scan. Although just to make sure will go ahead and repeat an x-ray and also PFTs in 6 months to make sure there is no any progression of that. If her x-ray is abnormal then at that point will consider doing a formal CT scan of the [facility] Medical History (Updated 04/10/23 @ 12:41 by Yahaira Brock MD) Asthma-COPD overlap syndrome Splenic artery aneurysm Lyme disease Hyperglycemia Major depressive disorder Graves disease Cervical spondylosis Hypothyroidism HTN (hypertension) Hypogammaglobulinemia Asthma Surgical History History of hysterectomy Family History (Updated 04/10/23 @ 12:03 by Cee Hull CMA) Father Substance use disorder Mental health disorder Social History Household Members: Spouse Housing: House Do you presently have visiting nurse or other home services: No Alcohol intake: never Patient Tobacco Use Status: Never used Tobacco e-Cigarette/Vaping Use: Never Used Second Hand Smoke Exposure: No service: No Cognitive needs: Yes Hearing needs: No Vision needs: No Review of Systems Const Denies night sweats ENT Denies change in voice, Denies lip swelling, Denies mouth pain, Reports nasal congestion, Reports nasal discharge, Reports post nasal drip, Denies sinus pressure and Denies tongue swelling Card Denies chest pain and Reports dyspnea on exertion Resp Denies change in phlegm color, Denies chest congestion, Reports cough, Denies hemoptysis, Denies excessive phlegm production, Reports dyspnea on exertion and Denies wheezing GI Denies abdominal pain Musc Denies no additional complaints Neuro Denies Neuro-related abnormal movements Psych Denies no additional complaints [place]/Lymph Denies easy bleeding and Denies lymphadenopathy Aller/Immun Denies lip swelling, Denies tongue swelling and Denies wheezing Physical Exam Vital Signs: Last Vital Signs Pulse 75 06/14/23 15:50 Pulse Ox 96 06/14/23 15:50 Oxygen Delivery Method Room Air 06/14/23 15:50 BMI result Body Mass Index 35.3 Const General: alert Neck Neck: Yes normal visual inspection, Yes full ROM and Yes no lymphadenopathy Chest Chest palpation & inspection: normal inspection of the chest Resp Auscultation: diminished lung sounds Cardio Rate: regular rate Rhythm: regular rhythm Heart sounds: S1 normal heart sound present and S2 normal heart sound present GI Palpation (GI): Soft to palpation and nontender Auscultation: normal bowel sounds Skin General skin exam: rashes and/or lesions noted Assessment & Plan Assessment & Plan (1) Asthma: Comment: Patient appears to have severe persistent allergic asthma. Her allergy testing was significantly positive for environmental allergies and molds. Patient does have an elevated eosinophilic level. Code(s): J45.909 - Unspecified asthma, uncomplicated Qualifiers: Asthma complication type: uncomplicated Asthma persistence: persistent Asthma severity: moderate Qualified Code(s): J45.40 - Moderate persistent asthma, uncomplicated (2) Hypogammaglobulinemia: Comment: Low IgG1, total IgG is low normal. Code(s): D80.1 - Nonfamilial hypogammaglobulinemia (3) Asthma-COPD overlap syndrome: Code(s): J44.9 - Chronic obstructive pulmonary disease, unspecified Plan continue Breztri Short-acting beta agonist as needed continue Daliresp 500mcg daily Continue Singulair (discontinued Dupixent. Consider IL5 inhibitors) Referral to Allergy and immunology CXR and PFTs in 6 months follow-up in 6 months Orders: Orders PFT pulmonary function test 6 Months J45.40 - Moderate persistent asthma, uncomplicated XR chest 2V 6 Months J45.40 - Moderate persistent asthma, uncomplicated Referrals Allergy & Immunology Referral J45.909 - Unspecified asthma, uncomplicated Medications: Refilled roflumilast (Daliresp) 500 mcg PO DAILY 30 tabs 11RF 30 days Coding Level of Care Code Est Pt Level 4 (70279) Diagnoses Moderate persistent asthma without complication J45.40 Asthma complication type: uncomplicated Asthma persistence: persistent Asthma severity: moderate Hypogammaglobulinemia D80.1 Asthma-COPD overlap syndrome J44.9 Time Spent (min) 18
== END 2023-06-15 07:35 | disposition home or self-care (01) ==
PROVIDERS: PCP Internal Medicine; Visit Provider Hospitalist
DX: J45.40 Moderate persistent asthma, uncomplicated (principal); D80.1 Nonfamilial hypogammaglobulinemia; J44.9 Chronic obstructive pulmonary disease, unspecified
CPT/HCPCS: 99214

== ENCOUNTER → 2023-06-14 15:40 | Outpatient (BNVA) | payer MEDICARE, SELFPAY | PROVIDERS: Visit Provider Hospitalist | DX: J44.9 Chronic obstructive pulmonary disease, unspecified (principal); J45.40 Moderate persistent asthma, uncomplicated; D80.1 Nonfamilial hypogammaglobulinemia | CPT/HCPCS: 99212 ==

== ENCOUNTER 2023-08-02 12:40 | Outpatient (AMB) | payer MEDICARE, SELFPAY ==
[2023-08-02 12:51] VITALS: BP 118/72; PULSE 87; O2SAT 98; BMI 36.6
--- NOTE | 2023-08-02 12:51 | A.OFFPC_ITS ---
Vital Signs 08/02/23 12:51 Height 5 ft 5 in Weight 220 lb BMI 36.6 BP 118/72 Blood Pressure Location Lt brachial Position Sitting Pulse 87 Pulse Source Pulse Oximeter Pulse Oximetry (%) 98 Oxygen Delivery Method Room Air Intake Visit Reasons: Merc/07-24/Mass in Urethra Intake Note: Pt is here today for a hospital follow up Nikki. Allergies lisinopril Adverse Reaction (Intermediate, Verified 08/02/23 12:53) cough Medication List - Last Reconciled 08/02/23 by Yahaira Brock MD albuterol sulfate 2.5 mg (3 mL) inhalation Q4H PRN albuterol sulfate 90 mcg/actuation 2 puffs PO Q6H PRN atenolol 25 mg PO BID [id number]-modcxjtd-ugducobctp 160-9-4.8 mcg/actuation (Breztri Aerosphere) 2 inhalations PO BID cetirizine (Zyrtec) 10 mg PO DAILY PRN multivitamin 1 tab PO DAILY nebulizers As directed roflumilast (Daliresp) 500 mcg PO DAILY 30 days spironolactone 50 mg PO BID thyroid (pork) 180 mg PO DAILY Tobacco use date assessed: 08/02/23 HPI Liaty/07-24/Mass in Urethra HPI Details Pt presents for f/u of ER visit 2 weeks ago for gross hematuria and was found to have periurethral mass and increasing in size up to 7 mm splenic aneurysm on CT. Patient was evaluated by urologist Dr. Salinas an MRI was ordered. She will have cystoscopy with biopsy next week. Patient complains of persistent dizziness lightheadedness symptoms and is requesting referral to ENT. [facility] Medical History (Updated 08/02/23 @ 13:44 by Yahaira Brock MD) Asthma-COPD overlap syndrome Splenic artery aneurysm Lyme disease Hyperglycemia Major depressive disorder Graves disease Cervical spondylosis Hypothyroidism HTN (hypertension) Hypogammaglobulinemia Asthma Surgical History History of hysterectomy Family History Father Substance use disorder Mental health disorder Social History Household Members: Spouse Housing: House Do you presently have visiting nurse or other home services: No Alcohol intake: never Patient Tobacco Use Status: Never used Tobacco e-Cigarette/Vaping Use: Never Used Second Hand Smoke Exposure: No service: No Cognitive needs: Yes Hearing needs: No Vision needs: No Questionnaire Thrive Questionnaire Date Thrive assessed: 03/30/23 ELIOT-7 AMB Questionnaire ELIOT-7 Date ELIOT - 7 assessed: 11/10/21 Source: Developed by Drs. James Moran, Mary Lou Moctezuma, Les Lujan and colleagues, with an educational joseluis from [employer]. Review of Systems Const All systems reviewed & are unremarkable except as noted in HPI and below Reports no additional complaints Eyes Reports no additional complaints ENT Reports no additional complaints Card Reports no additional complaints Resp Reports no additional complaints GI Reports no additional complaints Reports no additional complaints Physical exam (Primary Care) Vital Signs: Last Vital Signs Pulse 87 08/02/23 12:51 BP 118/72 08/02/23 12:51 Pulse Ox 98 08/02/23 12:51 Oxygen Delivery Method Room Air 08/02/23 12:51 BMI result Body Mass Index 36.6 Tobacco/Smoking Status: Tobacco use Status Tobacco use date assessed 08/02/23 08/02/23 12:55 Patient Tobacco Use Status Never used Tobacco 08/02/23 12:55 e-Cigarette/Vaping Use Never Used 08/02/23 12:55 Thrive Assessment: Date of Thrive Assessment Date Thrive assessed 03/30/23 08/02/23 12:55 Const General: no acute distress HENMT Mouth: Normal oral and palatal mucosa present Resp Effort & Inspection: normal respiratory effort Auscultation: clear to auscultation bilaterally Cardio Rhythm: regular rhythm Heart sounds: S1 normal heart sound present and S2 normal heart sound present GI Inspection: Yes normal to inspection Palpation (GI): Soft to palpation Percussion: Yes normal to percussion Auscultation: normal bowel sounds Assessment and Plan Assessment & Plan (1) Vertigo: Code(s): R42 - Dizziness and giddiness Plan: Referred to ENT (2) Splenic artery aneurysm: Comment: increasing in size, on CT [facility] 08/16 Code(s): I72.8 - Aneurysm of other specified arteries Plan: Referred to vascular surgeon at [facility] per patient's request (3) Mass of urethra: Comment: f/u with Dr. Salinas Code(s): N36.8 - Other specified disorders of urethra Plan: Follow-up with urology for MRI and cystoscopy (4) HTN (hypertension): Code(s): I10 - Essential (primary) hypertension Plan: Continue current medications Orders: Referrals Ear/Nose/Throat Referral R42 - Dizziness and giddiness Vascular Surgery Referral I72.8 - Aneurysm of other specified arteries Medications: Changed From Breztri Aerosphere 160-9-4.8 mcg/actuation (jdzmfmqxrf-aeuaxtar-fbmepfchhs) 2 inhalations PO BID 10.7 grams 0RF NS To jruoosbjpb-riyklksu-ppqvoobwdz 160-9-4.8 mcg/actuation (Breztri Aerosphere) 2 inhalations PO BID Coding Level of Care Code Est Pt Level 4 (47189) Diagnoses Vertigo R42 Splenic artery aneurysm I72.8 Mass of urethra N36.8 HTN (hypertension) I10
== END 2023-08-02 13:44 | disposition home or self-care (01) ==
PROVIDERS: PCP Internal Medicine; Visit Provider Internal Medicine
DX: R42 Dizziness and giddiness (principal); I72.8 Aneurysm of other specified arteries; N36.8 Other specified disorders of urethra; I10 Essential (primary) hypertension
CPT/HCPCS: 99214

== ENCOUNTER 2023-10-12 14:27 | Outpatient (AMB) | payer MEDICARE, SELFPAY ==
[2023-10-12 14:41] VITALS: BP 134/80; PULSE 78; O2SAT 97; BMI 38.9
--- NOTE | 2023-10-12 14:41 | MHC.OFFVIS ---
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: Final Assembler Boat offered & declined Allergies lisinopril Adverse Reaction (Intermediate, Verified 10/12/23 14:45) cough Medication List - Last Reconciled 10/12/23 by Sirisha Noel LPN albuterol sulfate 2.5 mg (3 mL) inhalation Q4H PRN albuterol sulfate 90 mcg/actuation 2 puffs PO Q6H PRN amoxicillin-pot clavulanate 875-125 mg 1 tab PO BID atenolol 25 mg PO BID Breztri Aerosphere 160-9-4.8 mcg/actuation (ktdwajvpns-xwrepmvu-fgozfqqjnt) 2 inhalations PO BID NS cetirizine (Zyrtec) 10 mg PO DAILY PRN multivitamin 1 tab PO DAILY nebulizers As directed prednisone 10 mg PO DIRECTED roflumilast (Daliresp) 500 mcg PO DAILY 30 days spironolactone 50 mg PO BID thyroid (pork) 180 mg PO DAILY HPI Sick visit (adolescent/adult) HPI Details Desirae is a pleasant 63 year old female, never smoker with underlying asthma COPD overlap and hypogammaglobulinemia. At baseline, she is moderately controlled on Breztri and daliresp. Today she presents for an acute visit. She reports ongoing symptoms of productive cough, chest tightness and wheezing. Dr. Acuna had prescribed azithromycin and prednisone on 09/25/23 with minimal improvement. COVID negative. She was then prescribed augmentin and prednisone on 10/08 with improvements in symptoms. However, when using her albuterol yesterday she had significant tachycardia, HR 200, and was evaluated in the ED at [facility]. CXR (shown on pt portal) revealed small lower lobe pneumonia (did not specify lobe). She was discharged with cardiology referral and recommended to continue augmentin and prednisone. [facility] Medical History (Updated 10/16/23 @ 21:14 by Kaye Dumont NP) Asthma-COPD overlap syndrome Splenic artery aneurysm Lyme disease Hyperglycemia Major depressive disorder Graves disease Cervical spondylosis Hypothyroidism HTN (hypertension) Hypogammaglobulinemia Asthma Surgical History History of hysterectomy Family History Father Substance use disorder Mental health disorder Social History (Updated 10/12/23 @ 14:48 by Sirisha Noel LPN) Household Members: Spouse Housing: House Do you presently have visiting nurse or other home services: No Alcohol intake: never Patient Tobacco Use Status: Never used Tobacco Smoked in Last 30 Days: No e-Cigarette/Vaping Use: Never Used Second Hand Smoke Exposure: No service: No Cognitive needs: Yes Hearing needs: No Vision needs: No Review of Systems Const Denies chills, Denies excessive sweating, Denies fever(s), Denies headache(s) and Denies night sweats Eyes Denies dry eyes, Denies irritation and Denies itchy eyes ENT Reports Normal hearing present, Denies headache(s), Denies nasal congestion, Denies nasal discharge, Denies post nasal drip and Denies sore throat Card Denies chest pain at rest, Denies chest pain with activity, Denies claudication, Denies leg edema, Reports dyspnea on exertion, Denies orthopnea and Denies paroxysmal nocturnal dyspnea Resp Reports cough, Denies hemoptysis, Denies excessive phlegm production, Denies pain on inspiration, Reports pain with cough, Reports dyspnea on exertion, Denies stridor and Reports wheezing Musc Denies myalgias Neuro Reports Normal hearing present and Denies headache(s) Endo Denies excessive sweating [place]/Lymph Denies lymphadenopathy Aller/Immun Denies itchy eyes, Denies seasonal rhinorrhea and Reports wheezing Physical Exam Vital Signs: Last Vital Signs Pulse 78 10/12/23 14:41 BP 134/80 10/12/23 14:41 Pulse Ox 97 10/12/23 14:41 Oxygen Delivery Method Room Air 10/12/23 14:41 BMI result Body Mass Index 38.9 Const General: cooperative, healthy appearing, comfortable, no acute distress, well developed and alert Nutritional Appearance: obese Orientation/consciousness: patient oriented x3 Limitations: no limitations HEENT Head: Yes normal to inspection, Yes normocephalic and Yes atraumatic Ears: hearing grossly normal bilaterally and external ears normal Eyes General: appearance normal, both eyes and all related structures Eyelids: Yes eyelids normal Sclerae: sclerae normal EOM: EOMs intact bilaterally Neck Neck: Yes normal visual inspection and Yes no lymphadenopathy Lymphatic: no lymphadenopathy noted Chest Chest palpation & inspection: normal inspection of the chest Resp Effort & Inspection: normal respiratory effort, able to speak in complete sentences, no audible wheezes, no stridor, not tachypneic, no tripod positioning and no use of accessory muscles Auscultation: crackles (faint, LLL), no wheezes and diminished lung sounds Cardio Jugular venous distension: no JVD Rate: regular rate Rhythm: regular rhythm Skin Other: warm, dry General skin exam: no rashes or lesions noted Neuro General: patient oriented x3 Cranial nerves: Yes Normal hearing present Cognition (Neuro): normal cognition Gait exam (Neuro): Normal gait present Extrem General: Yes normal to inspection, Yes capillary refill normal, Yes no clubbing, cyanosis or edema and Yes no pedal edema Psych Appearance: grossly normal and well kempt Speech and movement: Normal speech and movement present and Clear speech present Affect: normal affect Attitude: cooperative Thought process: Normal thought process present Thought content: Normal thought content present Insight: Good insight present (Psych) Judgement: Good judgement present (Psych) Assessment & Plan Assessment & Plan (1) Asthma-COPD overlap syndrome: Code(s): J44.9 - Chronic obstructive pulmonary disease, unspecified (2) Pneumonia: Code(s): J18.9 - Pneumonia, unspecified organism Plan Will add doxycyline to regimen for pneumonia. Advised patient to complete augmentin and prednisone. Recommended using albuterol MDI, since patient with no cardiac symptoms with use and avoid nebulizer. Will obtain CXR report from Alex. Patient aware if symptoms worsen or development of cardiac symptoms to seek emergent care. All questions were answered and patient is in agreement of plan. Will follow up with Dr. Acuna for regularly scheduled appointment or sooner if needed. Medications: New doxycycline hyclate 100 mg PO BID 20 caps 0RF Coding Level of Care Code Est Pt Level 4 (34640) Diagnoses Asthma-COPD overlap syndrome J44.9 Pneumonia J18.9
== END 2023-10-12 15:15 | disposition home or self-care (01) ==
PROVIDERS: PCP Internal Medicine; Visit Provider Nurse Practitioner Family
DX: J44.9 Chronic obstructive pulmonary disease, unspecified (principal); J18.9 Pneumonia, unspecified organism
CPT/HCPCS: 99214

== ENCOUNTER → 2023-10-12 14:27 | Outpatient (BNVA) | payer MEDICARE, SELFPAY | PROVIDERS: PCP Internal Medicine; Visit Provider Nurse Practitioner Family | DX: J44.9 Chronic obstructive pulmonary disease, unspecified (principal); J18.9 Pneumonia, unspecified organism | CPT/HCPCS: 99212 ==

== ENCOUNTER 2023-12-25 16:25 | Outpatient (REF) | payer MEDICARE, SELFPAY ==
--- NOTE | ~2023-12-25 | CT_ITS ---
EXAMINATION: CT MAXILLOFACIAL WITHOUT CONTRAST CLINICAL INFORMATION: Polyp of the nasal cavity. COMPARISON: Brain MRI from 03/28/2023. CTA head and neck from 03/28/2023. TECHNIQUE: Multidetector helical imaging was performed in the axial plane with generation of coronal and sagittal reformatted images. This CT examination was performed using dose optimization techniques as appropriate, variously including the following: *Automated exposure control. *Adjustment of mA and/or kV according to patient size (this includes techniques or standardized protocols for targeted exams where dose is matched to indication/reason for exam; i.e. extremities or head). *Use of iterative reconstruction technique. DLP: 122 mGy-cm FINDINGS: FRONTAL SINUSES AND DRAINAGE PATHWAYS: The right frontal sinus is congenitally diminutive. The left frontal sinus is clear. The frontoethmoidal recesses are patent. MAXILLARY SINUSES AND DRAINAGE PATHWAYS: Mild mucosal thickening of the maxillary sinuses. The maxillary ostia and infundibula are patent. ETHMOID SINUSES: Mild mucosal thickening of the ethmoid air cells. The ethmoid roofs appear symmetric and intact. SPHENOID SINUS AND DRAINAGE PATHWAYS: Minimal mucosal thickening of the sphenoid sinus. The sphenoethmoidal recesses are patent. NASAL PASSAGE: Mild mucosal thickening of the nasal passages. Mild leftward nasal septal deviation. ADDITIONAL RELEVANT FINDINGS: The lamina papyracea are intact. No demonstrated abnormalities of the orbits. The carotid canals are normally covered by bone. No significant maxillary periapical disease. The temporomandibular joints are normal. The mastoid air cells and middle ear cavities remain well aerated. Limited evaluation of the intracranial structures without significant abnormalities. CT/CT sinus wo IV con IMPRESSION: 1. Mild sinonasal mucosal disease. 2. Mild leftward nasal septal deviation.
== END 2023-12-25 16:26 | disposition home or self-care (01) ==
LOC: HO.CT 16:25
PROVIDERS: PCP Internal Medicine; Visit Provider Otolaryngology
DX: J33.0 Polyp of nasal cavity (principal)
CPT/HCPCS: 70486

== ENCOUNTER 2023-12-28 13:57 | Outpatient (REF) | payer MEDICARE, SELFPAY ==
[2023-12-28 09:46] VITALS: PULSE 74; RESP 16; O2SAT 97
--- NOTE | 2023-12-28 16:00 | PFT_ITS ---
Indication: Asthma Spirometry [FEV1 to FVC 81%; FEV1 2.67 L; FVC 3.3 L. No significant response to bronchodilators noted. Normal maximum voluntary ventilation.] Lung Volumes [Total lung capacity 89% predicted] Diffusion Capacity [DLCO under 11% predicted] Comparisons [None] Interpretation [No obstructive nor restrictive ventilatory defects identified. No significant response to bronchodilators not apparent normal lung volumes and also normal diffusing capacity. Clinical correlation warranted.] MTDD
== END 2023-12-28 13:58 | disposition home or self-care (01) ==
LOC: HO.RESP 13:57
PROVIDERS: PCP Internal Medicine; Visit Provider Hospitalist
DX: J45.40 Moderate persistent asthma, uncomplicated (principal)
CPT/HCPCS: 94010; 94640; 94727; 94729; 99212

== ENCOUNTER 2023-12-28 14:01 | Outpatient (AMB) | payer MEDICARE, SELFPAY ==
--- NOTE | 2023-12-28 15:08 | A.OFFVIS_ITS ---
Intake Vital Signs 12/28/23 15:09 Height 5 ft 5 in Weight 220 lb BMI 36.6 Pulse 75 Pulse Source Pulse Oximeter Pulse Oximetry (%) 96 Oxygen Delivery Method Room Air Intake Visit Reasons: Same Day PFT Facepiece Line Supervisor Required: No Allergies lisinopril Adverse Reaction (Intermediate, Verified 12/28/23 15:10) cough HPI HPI Comments History of Present Illness Details The patient is a 63-year-old woman with a known history of asthma. Apparently back in 2007 she an asthma exacerbation and respiratory failure requiring hospital level of care. She did have a CT scan of the chest at that time demonstrating some slight interstitial changes specially at the bases. After that she had been well and she did have abnormal IgG levels and up some point she did go to [place] for evaluation of hypogammaglobulinemia and she was recommended to start IgG therapy which she did not. At some 0.2 she was diagnosed with Lyme in addition to meningitis and she has been treated for that. More recently in December she started developing worsening respiratory complaints she went to an urgent care where she was diagnosed with bilateral pneumonia and treated with Z-Jonathan and also prednisone blast. Her symptoms persisted and she went back after weak and she was again given a course of levofloxacin and another course of prednisone 50 mg for 5 days. Again her symptoms partially improves but then re-occurred she went to the ER at [facility] which she had an x-ray which was abnormal for some opacity in the left base. She has had covid testing x2 which have been both negative. Her eosinophils with the only thing that been elevated suggesting as eosinophilic reaction. On further questioning her started making some construction and demolition in the home due to knee keep type findings significant amount of mold behind the dry wall. At this point her stopped the construction due to her symptoms. There could have a professional handle the mold issue. She is responding well to the regimen of Symbicort and Singulair and allergy medicine. Her also stop working on the house as there was significant mold. She is looking to see if we can mediated the mold but is very expensive. Which still waiting for her rast and hypersensitivity panel. Her blood work does demonstrate a decrease IgG subclass 1 but a total IgG level does within normal. Otherwise her laboratories were relatively unremarkable. I will make does test available to her once I reviewed them. In the meantime she is to avoid all mold exposures. 09/06/2020 the patient is here for pulmonary follow-up visit. Overall she has been doing okay. She has been noticing increasing congestion. She does complaint of sinus headaches and also nasal congestion. Moderate severity. She is concerned that is going to the involving to another infection. Again we looked at her blood work demonstrating a low normal total IgG level but he decrease subclass 1 IgG level. Her IgE levels also slightly decreased. The patient also had allergy testing without any significant findings. The patient would benefit from going for an allergy evaluation for both the immunology issues in the allergy issues. I recommend she goes to Dr. rossi. In the meantime she is going to continue with respiratory therapy. She will be treated for sinusitis. If she has issues with the current upper or lower respiratory infections we can consider suppression therapy with macrolide therapy. 10/13/2020 the patient has a telephone visit. Overall the patient has been doing relatively okay. Initially she went to see the main liquid sugar fortifier and had a lot of blood work done. She was having hard time with her breathing and was coughing and therefore the patient was placed on prednisone. This is the 4th time issues is prednisone and actually made her feel much better. She also has been on the doxycycline. That has not been very helpful. His she will be following up with Neurology soon to discuss her findings. In addition to that the patient continues to have productive cough with clear mucus. Denies any hemoptysis. Likely complete pulmonary of chronic bronchitis. Therefore, will switch over to azithromycin Sunday to see if does more effective for the patient. Also for the chronic bronchitis in her multiple use of prednisone she may be a good candidate for Daliresp. The patient did have a previous CT scan of the chest and also chest x-ray but nothing recent. Plan to do an x-ray prior to the next visit. 03/08/2021 the patient is here for pulmonary follow-up visit. Overall the patient has been doing about the same. Having frequent episodes of wheezing and chest tightness. Recently she has completed another course of prednisone. She did follow-up with Allergy and immunology and did recommend Dupixent is a good option for the patient. She does have significant allergies to her for her mental and mold. In addition to that her IgG level total was low and she is being evaluated for the hypogammaglobulinemia at this time. She has responded well to the azithromycin 3 times a week in his capped getting frequent infections. At this point she would like to continue this medication. She also continues to Symbicort twice a day in addition to her singular. 10/27/2021 the patient is here for a pulmonary follow-up visit. Apparently the patient had been doing very well for the last several months but then started having increasing respiratory symptoms for the last several days. Apparently she was on Dupixent and Dupixent was initially very helpful. However, she started noticing significant amount of weight gain. And ultimately did not feel like the Dupixent was effective in longer. Ultimately she decided to come off the medication. She has been following closely with Allergy and immunology. The patient has been evaluated for hypogammaglobulinemia. Her insurance did recheck her initiation of IVIG. Currently she needs to go back to have her vaccine challenge done to see if the patient is able to mount a response to the vaccine and see if she has a candidate for IVIG. In the meantime she is using prophylactic antibiotics with azithromycin. Now she has been noticing increasing nasal congestion and fullness in sinus pressure. She has significant postnasal drip and hernandez is drainage. The patient also has been coughing is having increasing chest pressure sensation. She has been on Symbicort now for some time. Therefore will go ahead and optimize respiratory therapy by switching over to a triple agent. In the meantime the patient also was start a course of Augmentin and prednisone if she is not any better. We also discussed other biologic therapies. If the patient does not improve after optimizing her respiratory therapy will be reasonable to recheck her CBC with differential assess her eosinophilic count. Her eosinophils were elevated in the past. She may be a candidate for IL 5 inhibitors. 12/14/3022 The patient is here for a pulmonary follow-up visit. Apparently the patient had been doing very well for the last several months but then started having increasing respiratory symptoms for the last several days.Has been having worsening wheezing.She has continued to require prednisone tapers. She is already optimized respiratory therapy with only partial improvement. She would be a great candidate for Daliresp. We will start the 250mcg dose. She will call when she is ready for the 500mcg dose. 06/14/2023 the patient is here for a pulmonary follow-up visit. The patient overall doing a lot better. She responded very well to the Daliresp and I will send day medication to the pharmacy again. She also continues on her respiratory therapy. She is still having allergy symptoms and she does want to go back to her liquid sugar fortifier. Therefore I will make a referral at this time. She may be a good candidate for now 5 inhibitor if she continues to be symptomatic. She has not required prednisone which is reassuring. We did review her CT scan of the abdomen that she had over the summer. Appears that she has some atelectasis at the bases. This was new when compared to a CT scan from 2021. Likely atelectasis from the fact that she was more bed-bound when she had a CT scan. Although just to make sure will go ahead and repeat an x-ray and also PFTs in 6 months to make sure there is no any progression of that. If her x-ray is abnormal then at that point will consider doing a formal CT scan of the chest. 12/28/2023 the patient is here for a pulmonary follow-up visit. Overall the patient has been doing well. Her breathing has improved. She did have chronic function studies which we personally reviewed. No evidence of any obstructive nor restrictive ventilatory defects. This is reassuring. In addition to that the patient did have a chest x-ray back in September 2023 demonstrating no acute disease. She has been having issues with cough in addition to nasal congestion. She did have a CT scan of the sinus. Has not been officially read yet. We did reviewed briefly and patient did have a component of sinusitis with mainly the maxillary sinus on the left side in addition to a deviated septum and inflammation a turbinates. [facility] Medical History (Updated 12/31/23 @ 21:27 by Andres Acuna MD) Asthma-COPD overlap syndrome Splenic artery aneurysm Lyme disease Hyperglycemia Major depressive disorder Graves disease Cervical spondylosis Hypothyroidism HTN (hypertension) Hypogammaglobulinemia Asthma Surgical History History of hysterectomy Family History Father Substance use disorder Mental health disorder Social History (Updated 10/12/23 @ 14:48 by Sirisha Noel LPN) Household Members: Spouse Housing: House Do you presently have visiting nurse or other home services: No Alcohol intake: never Patient Tobacco Use Status: Never used Tobacco e-Cigarette/Vaping Use: Never Used Second Hand Smoke Exposure: No service: No Cognitive needs: Yes Hearing needs: No Vision needs: No Review of Systems Const Denies night sweats ENT Denies lip swelling, Reports nasal congestion, Reports nasal discharge, Reports nasal obstruction, Reports sinus pain and Denies tongue swelling Card Denies chest pain and Reports dyspnea on exertion Resp Reports cough, Reports dyspnea on exertion and Denies wheezing GI Denies abdominal pain Musc Denies no additional complaints Neuro Denies Neuro-related abnormal movements Psych Denies no additional complaints [place]/Lymph Denies easy bleeding and Denies lymphadenopathy Aller/Immun Denies lip swelling, Denies tongue swelling and Denies wheezing Physical Exam Vital Signs: Last Vital Signs Pulse 75 12/28/23 15:09 Pulse Ox 96 12/28/23 15:09 Oxygen Delivery Method Room Air 12/28/23 15:09 BMI result Body Mass Index 36.6 Const General: alert Neck Neck: Yes normal visual inspection, Yes full ROM and Yes no lymphadenopathy Chest Chest palpation & inspection: normal inspection of the chest Resp Auscultation: diminished lung sounds Cardio Rate: regular rate Rhythm: regular rhythm Heart sounds: S1 normal heart sound present and S2 normal heart sound present GI Palpation (GI): Soft to palpation and nontender Auscultation: normal bowel sounds Skin General skin exam: rashes and/or lesions noted Assessment & Plan Assessment & Plan (1) Sinusitis: Code(s): J32.9 - Chronic sinusitis, unspecified Qualifiers: Sinusitis location: maxillary Chronicity: subacute Qualified Code(s): J01.00 - Acute maxillary sinusitis, unspecified (2) Asthma: Comment: Patient appears to have severe persistent allergic asthma. Her allergy testing was significantly positive for environmental allergies and molds. Patient does have an elevated eosinophilic level. Code(s): J45.909 - Unspecified asthma, uncomplicated Qualifiers: Asthma complication type: uncomplicated Asthma persistence: persistent Asthma severity: moderate Qualified Code(s): J45.40 - Moderate persistent asthma, uncomplicated (3) Hypogammaglobulinemia: Comment: Low IgG1, total IgG is low normal. Code(s): D80.1 - Nonfamilial hypogammaglobulinemia Plan start Doxycycline start Prednisone taper cough medicine continue Breztri Short-acting beta agonist as needed continue Daliresp 500mcg daily Continue Singulair (discontinued Dupixent. Consider IL5 inhibitors) CXR follow-up in 6 months Orders: Orders XR chest 2V 12/28/23 J18.9 - Pneumonia, unspecified organism Medications: New codeine-guaifenesin 10-100 mg/5 mL 10 mL PO Q6H 10 days PRN 300 mL 0RF cough prednisone PO daily; Take 2 tab daily x 7 days, then 1 tab daily x 7 days 14 days 21 tabs 0RF doxycycline monohydrate 100 mg PO BID 14 days 28 tabs 0RF chlorpheniramine maleate 4 mg PO Q6H 30 days PRN 60 tabs 2RF itching Coding Level of Care Code Est Pt Level 4 (13200) Diagnoses Subacute maxillary sinusitis J01.00 Sinusitis location: maxillary Chronicity: subacute Moderate persistent asthma without complication J45.40 Asthma complication type: uncomplicated Asthma persistence: persistent Asthma severity: moderate Hypogammaglobulinemia D80.1 Time Spent (min) 17
[2023-12-28 15:09] VITALS: PULSE 75; O2SAT 96; BMI 36.6
== END 2023-12-28 15:34 | disposition home or self-care (01) ==
PROVIDERS: PCP Internal Medicine; Visit Provider Hospitalist
DX: J01.00 Acute maxillary sinusitis, unspecified (principal); J45.40 Moderate persistent asthma, uncomplicated; D80.1 Nonfamilial hypogammaglobulinemia
CPT/HCPCS: 94060; 94727; 94729; 99214

== ENCOUNTER 2024-01-22 13:23 | Outpatient (AMB) | payer MEDICARE, SELFPAY ==
--- NOTE | 2024-01-22 13:25 | A.OFFVIS_ITS ---
Vital Signs 01/22/24 13:26 Height 5 ft 5 in Weight 233 lb 6 oz BMI 38.8 BP 124/68 Blood Pressure Location Lt brachial Position Sitting Pulse 81 Pulse Source Pulse Oximeter Pulse Oximetry (%) 98 Oxygen Delivery Method Room Air Intake Visit Reasons: Chronic cough Allergies lisinopril Adverse Reaction (Intermediate, Verified 01/22/24 13:30) cough HPI HPI Chronic cough: Details: Desirae is a pleasant 63 year old female, never smoker with underlying asthma COPD overlap and hypogammaglobulinemia. At baseline, she is moderately controlled on Breztri, albuterol MDI/neb and daliresp. Today she presents for an acute visit. She reports ongoing symptoms of productive cough, hoarseness and pleuritic pain. Symptoms initially started in September, treated for pneumonia, and symptoms having persisted. She was seen by Dr. Acuna 12/28/23 prescribed doxycyline and prednisone with moderate improvement in symptoms. Unfortunately, a few days after discontinuing medication, symptoms returned and worsened. A CXR was ordered if she developed worsening symptoms, however she forgot about the order. She has tried to use albuterol but reports minimal improvement with use. [facility] Medical History (Updated 01/22/24 @ 14:11 by Kaye Dumont NP) Asthma-COPD overlap syndrome Splenic artery aneurysm Lyme disease Hyperglycemia Major depressive disorder Graves disease Cervical spondylosis Hypothyroidism HTN (hypertension) Hypogammaglobulinemia Asthma Surgical History History of hysterectomy Family History Father Substance use disorder Mental health disorder Social History (Updated 10/12/23 @ 14:48 by Sirisha Noel LPN) Household Members: Spouse Housing: House Do you presently have visiting nurse or other home services: No Alcohol intake: never Patient Tobacco Use Status: Never used Tobacco e-Cigarette/Vaping Use: Never Used Second Hand Smoke Exposure: No service: No Cognitive needs: Yes Hearing needs: No Vision needs: No Review of Systems Const Denies chills, Denies excessive sweating, Denies fever(s), Denies headache(s) and Denies night sweats Eyes Denies dry eyes, Denies irritation and Denies itchy eyes ENT Reports Normal hearing present, Denies headache(s), Denies nasal congestion, Denies nasal discharge, Denies post nasal drip and Denies sore throat Card Denies claudication, Denies leg edema, Denies dyspnea, Denies dyspnea on exertion, Denies orthopnea and Denies paroxysmal nocturnal dyspnea Resp Denies chest congestion, Denies excessive phlegm production, Denies pain on inspiration, Denies pain with cough, Denies dyspnea, Denies dyspnea on exertion, Denies stridor and Denies wheezing Musc Denies myalgias Neuro Reports Normal hearing present and Denies headache(s) Endo Denies excessive sweating [place]/Lymph Denies lymphadenopathy Aller/Immun Denies itchy eyes, Denies seasonal rhinorrhea and Denies wheezing Physical Exam Const General: cooperative, no acute distress, well developed and alert Nutritional Appearance: obese Orientation/consciousness: patient oriented x3 Limitations: no limitations HEENT Head: Yes normal to inspection, Yes normocephalic and Yes atraumatic Ears: hearing grossly normal bilaterally and external ears normal Eyes General: appearance normal, both eyes and all related structures Eyelids: Yes eyelids normal Sclerae: sclerae normal EOM: EOMs intact bilaterally Neck Neck: Yes normal visual inspection and Yes no lymphadenopathy Lymphatic: no lymphadenopathy noted Chest Chest palpation & inspection: normal inspection of the chest Resp Other: persistent harsh cough throughout visit Effort & Inspection: normal respiratory effort, able to speak in complete sentences, no audible wheezes, no stridor, not tachypneic, no tripod positioning and no use of accessory muscles Auscultation: clear to auscultation bilaterally Cardio Jugular venous distension: no JVD Rate: regular rate Rhythm: regular rhythm Skin Other: warm, dry General skin exam: no rashes or lesions noted Neuro General: patient oriented x3 Cranial nerves: Yes Normal hearing present Cognition (Neuro): normal cognition Gait exam (Neuro): Normal gait present Extrem General: Yes normal to inspection, Yes capillary refill normal, Yes no clubbing, cyanosis or edema and Yes no pedal edema Psych Appearance: grossly normal and well kempt Speech and movement: Normal speech and movement present and Clear speech present Affect: normal affect Attitude: cooperative Thought process: Normal thought process present Thought content: Normal thought content present Insight: Good insight present (Psych) Judgement: Good judgement present (Psych) Assessment & Plan Assessment & Plan (1) Asthma: Code(s): J45.909 - Unspecified asthma, uncomplicated Category: Medical Qualifiers: Asthma severity: moderate Asthma persistence: persistent Asthma complication type: uncomplicated Qualified Code(s): J45.40 - Moderate persistent asthma, uncomplicated (2) Hypogammaglobulinemia: Code(s): D80.1 - Nonfamilial hypogammaglobulinemia Category: Medical Plan Will treat with vantin as well as prednisone and patient will obtain CXR today. Encouraged patient to use albuterol neb PRN, will send in refill. She reports relief with codeine cough syrup, will send in. Patient aware if symptoms do not improve, then consider bronchoscopy. She does note that she will be evaluated by ENT on 02/12 as well as with Dr. Freitas for paraesphogeal hernia. All questions were answered and patient is in agreement of plan. Will follow up for regularly scheduled appointment with Dr. Acuna or sooner if needed. Medications: New prednisone 40 mg (2 x 20 mg) PO DAILY 10 tabs 0RF cefpodoxime must administer with a meal/food 200 mg PO BID 20 tabs 0RF Refilled codeine-guaifenesin 10-100 mg/5 mL 10 mL PO Q6H 10 days PRN 300 mL 0RF cough albuterol sulfate 2.5 mg (3 mL) inhalation Q4H PRN 90 mL 0RF for wheezing Coding Level of Care Code Est Pt Level 4 (97349) Diagnoses Moderate persistent asthma without complication J45.40 Asthma severity: moderate Asthma persistence: persistent Asthma complication type: uncomplicated Hypogammaglobulinemia D80.1
[2024-01-22 13:26] VITALS: BP 124/68; PULSE 81; O2SAT 98; BMI 38.8
== END 2024-01-22 13:52 | disposition home or self-care (01) ==
PROVIDERS: PCP Internal Medicine; Visit Provider Nurse Practitioner Family
DX: J45.40 Moderate persistent asthma, uncomplicated (principal); D80.1 Nonfamilial hypogammaglobulinemia
CPT/HCPCS: 99214

== ENCOUNTER → 2024-01-22 13:23 | Outpatient (BNVA) | payer MEDICARE, SELFPAY | PROVIDERS: PCP Internal Medicine; Visit Provider Nurse Practitioner Family | DX: J45.40 Moderate persistent asthma, uncomplicated (principal); D80.1 Nonfamilial hypogammaglobulinemia | CPT/HCPCS: 99212 ==

== ENCOUNTER 2024-01-30 15:09 | Outpatient (REF) | payer MEDICARE, SELFPAY ==
--- NOTE | ~2024-01-30 | XR_ITS ---
EXAMINATION: XR CHEST CLINICAL INFORMATION: Pneumonia, unspecified organism. COMPARISON: 02/06/2020 TECHNIQUE: 2 views of the chest were obtained. FINDINGS: There is no gross pneumothorax. Cardiac silhouette within normal limits in size. No pleural effusion. No new focal consolidation to suggest pneumonia. Moderate degenerative changes in the thoracic spine. XR/XR chest 2V IMPRESSION: No evidence of pneumonia.
== END 2024-01-30 15:10 | disposition home or self-care (01) ==
LOC: HO.XRAY 15:09
PROVIDERS: PCP Internal Medicine; Visit Provider Hospitalist
DX: J18.9 Pneumonia, unspecified organism (principal)
CPT/HCPCS: 71046

== ENCOUNTER 2024-02-11 09:38 | Outpatient (AMB) | payer MEDICARE, SELFPAY ==
[2024-02-11 09:42] VITALS: BP 128/72; PULSE 77; O2SAT 96; BMI 38.9
--- NOTE | 2024-02-11 09:42 | MHC.OFFVIS ---
Vital Signs 02/11/24 09:42 Height 5 ft 5 in Weight 233 lb 11.04 oz BMI 38.9 BP 128/72 Blood Pressure Location Rt brachial Position Sitting Pulse 77 Pulse Source Pulse Oximeter Pulse Oximetry (%) 96 Oxygen Delivery Method Room Air Intake Visit Reasons: sick visit Allergies lisinopril Adverse Reaction (Intermediate, Verified 02/11/24 09:44) cough HPI HPI sick visit : Details: Desirae is a pleasant 63 year old female, never smoker with underlying asthma COPD overlap and hypogammaglobulinemia. At baseline, she is moderately controlled on Breztri, albuterol MDI/neb and daliresp. Today she presents for an acute visit. She reports ongoing symptoms of productive cough, hoarseness and pleuritic pain. Symptoms initially started in September, treated for pneumonia, and symptoms having persisted. She was seen by Dr. Acuna 12/28/23 prescribed doxycyline and prednisone with moderate improvement in symptoms. Unfortunately, a few days after discontinuing medication, symptoms returned and worsened. On 01/21 she returned to office, treated with vantin and prednisone. She notes cough is less harsh but continues to be productice with whitish hernandez sputum and hoarseness. She denies any chest tightness or wheezing. She denies any sick contacts, fevers or chills. She has been using albuterol 1-2 times per day with minimal response. CXR 01/26 unremarkable. Of note, she is undergoing thorough work up tomorrow with esophageal manometry as she reports uncontrolled GERD which may be contributing to symptoms. [facility] Medical History (Updated 02/11/24 @ 10:04 by Kaye Dumont NP) Asthma-COPD overlap syndrome Splenic artery aneurysm Lyme disease Hyperglycemia Major depressive disorder Graves disease Cervical spondylosis Hypothyroidism HTN (hypertension) Hypogammaglobulinemia Asthma Surgical History History of hysterectomy Family History Father Substance use disorder Mental health disorder Social History Household Members: Spouse Housing: House Do you presently have visiting nurse or other home services: No Alcohol intake: never Patient Tobacco Use Status: Never used Tobacco e-Cigarette/Vaping Use: Never Used Second Hand Smoke Exposure: No service: No Cognitive needs: Yes Hearing needs: No Vision needs: No Review of Systems Const Denies chills, Denies excessive sweating, Denies fever(s), Denies headache(s) and Denies night sweats Eyes Denies dry eyes, Denies irritation and Denies itchy eyes ENT Reports Normal hearing present, Denies headache(s), Denies nasal congestion, Denies nasal discharge, Denies post nasal drip and Denies sore throat Card Denies claudication, Denies leg edema, Denies dyspnea, Denies dyspnea on exertion, Denies orthopnea and Denies paroxysmal nocturnal dyspnea Resp Denies chest congestion, Denies excessive phlegm production, Denies pain on inspiration, Denies pain with cough, Denies dyspnea, Denies dyspnea on exertion, Denies stridor and Denies wheezing Musc Denies myalgias Neuro Reports Normal hearing present and Denies headache(s) Endo Denies excessive sweating [place]/Lymph Denies lymphadenopathy Aller/Immun Denies itchy eyes, Denies seasonal rhinorrhea and Denies wheezing Physical Exam Vital Signs: Last Vital Signs Pulse 77 02/11/24 09:42 BP 128/72 02/11/24 09:42 Pulse Ox 96 02/11/24 09:42 Oxygen Delivery Method Room Air 02/11/24 09:42 BMI result Body Mass Index 38.9 Const General: cooperative, no acute distress, well developed and alert Nutritional Appearance: obese Orientation/consciousness: patient oriented x3 Limitations: no limitations HEENT Head: Yes normal to inspection, Yes normocephalic and Yes atraumatic Ears: hearing grossly normal bilaterally and external ears normal Eyes General: appearance normal, both eyes and all related structures Eyelids: Yes eyelids normal Sclerae: sclerae normal EOM: EOMs intact bilaterally Neck Neck: Yes normal visual inspection and Yes no lymphadenopathy Lymphatic: no lymphadenopathy noted Chest Chest palpation & inspection: normal inspection of the chest Resp Other: persistent harsh cough throughout visit Effort & Inspection: normal respiratory effort, able to speak in complete sentences, no audible wheezes, no stridor, not tachypneic, no tripod positioning and no use of accessory muscles Auscultation: clear to auscultation bilaterally Cardio Jugular venous distension: no JVD Rate: regular rate Rhythm: regular rhythm Skin Other: warm, dry General skin exam: no rashes or lesions noted Neuro General: patient oriented x3 Cranial nerves: Yes Normal hearing present Cognition (Neuro): normal cognition Gait exam (Neuro): Normal gait present Extrem General: Yes normal to inspection, Yes capillary refill normal, Yes no clubbing, cyanosis or edema and Yes no pedal edema Psych Appearance: grossly normal and well kempt Speech and movement: Normal speech and movement present and Clear speech present Affect: normal affect Attitude: cooperative Thought process: Normal thought process present Thought content: Normal thought content present Insight: Good insight present (Psych) Judgement: Good judgement present (Psych) Assessment & Plan Assessment & Plan (1) Asthma: Code(s): J45.909 - Unspecified asthma, uncomplicated Category: Medical Qualifiers: Asthma complication type: uncomplicated Asthma persistence: persistent Asthma severity: moderate Qualified Code(s): J45.40 - Moderate persistent asthma, uncomplicated (2) Hypogammaglobulinemia: Code(s): D80.1 - Nonfamilial hypogammaglobulinemia Category: Medical (3) Cough: Code(s): R05.9 - Cough, unspecified Category: Medical Plan Patient recently treated with doxycyline with return of symptoms then treated with Vantin. She again noted moderate improvements then return of symptoms after completing course. Will send for sputum culture, patient given sputum cup for collection to be performed at home. She is aware if unable to produce sample, consider bronchoscopy. She will call office. All questions were answered and patient is in agreement of plan. Orders: Orders Sputum Cult + Gram stain Today R05.9 - Cough, unspecified Medications: Refilled codeine-guaifenesin 10-100 mg/5 mL 10 mL PO Q6H PRN 300 mL 0RF cough 10 days Coding Level of Care Code Est Pt Level 4 (56718) Diagnoses Moderate persistent asthma without complication J45.40 Asthma complication type: uncomplicated Asthma persistence: persistent Asthma severity: moderate Hypogammaglobulinemia D80.1 Cough R05.9
== END 2024-02-11 10:06 | disposition home or self-care (01) ==
PROVIDERS: PCP Internal Medicine; Visit Provider Nurse Practitioner Family
DX: J45.40 Moderate persistent asthma, uncomplicated (principal); D80.1 Nonfamilial hypogammaglobulinemia; R05.9 Cough, unspecified
CPT/HCPCS: 99214

== ENCOUNTER → 2024-02-11 09:38 | Outpatient (BNVA) | payer MEDICARE, SELFPAY | PROVIDERS: PCP Internal Medicine; Visit Provider Nurse Practitioner Family | DX: J45.40 Moderate persistent asthma, uncomplicated (principal); D80.1 Nonfamilial hypogammaglobulinemia; R05.9 Cough, unspecified | CPT/HCPCS: 99212 ==

== ENCOUNTER 2024-03-21 15:26 | Outpatient (REF) | payer MEDICARE, SELFPAY ==
--- NOTE | ~2024-03-21 | CT_ITS ---
EXAMINATION: CT CHEST WITHOUT CONTRAST CLINICAL INFORMATION: Cough. COMPARISON: Chest radiographs dated 02/11/2024; CTA chest dated 08/27/2008. TECHNIQUE: Multidetector volumetric CT imaging of the chest was done. Axial MIP volume rendering provided. Sagittal and coronal reformatted images were obtained. This CT examination was performed using dose optimization techniques as appropriate, variously including the following: *Automated exposure control *Adjustment of mA and/or kV according to patient size (this includes techniques or standardized protocols for targeted exams where dose is matched to indication/reason for exam; i.e. extremities or head) *Use of iterative reconstruction technique DLP: 1 a 7 mGy-cm FINDINGS: CONSTRUCTION EQUIPMENT OPERATOR: Lungs are symmetrically well-expanded and grossly clear. There is mild elevation of the right hemidiaphragm. Cholecystectomy clips are noted. LUNGS: Two small benign, calcified granulomas are incidentally noted at the posterior right base. At the medial right base (5:424), a 2 mm noncalcified nodule is seen. This is stable from the CT abdomen and pelvis dated 11/08/2021 (4:111), and it is considered benign. No further follow-up is recommended. No new nodule is seen. There is minimal pleural and parenchymal scarring at the posterior right apex. No mass, infiltrate or groundglass opacity is seen. There is no generalized increase in peripheral interlobular septal markings. No bleb or bullous formation is seen. There is no small airway thickening. The central airways appear patent. MEDIASTINUM: The mediastinum is normal. CORONARY ARTERY CALCIFICATION: None visualized on this study. PLEURA: There is no pleural effusion. No pleural mass or thickening. AXILLA: No lymphadenopathy. UPPER ABDOMEN: The gallbladder is surgically absent. Adjacent to the falciform ligament (3:52), a 1.2 cm low-attenuation cyst is seen, with precontrast Hounsfield value of 9.8 units. Included portions of the adrenal glands are unremarkable. OSSEOUS STRUCTURES: There is multi-level marked thoracic spondylosis. No acute or aggressive osseous finding is noted. CT/CT chest wo IV con IMPRESSION: 1. No suspicious nodule, mass, infiltrate or groundglass opacity is seen. 2. There is no thoracic lymphadenopathy or pleural effusion. 3. There is multi-level marked thoracic spondylosis. No acute or aggressive osseous finding is seen Fleischner guidelines were followed.
== END 2024-03-21 15:27 | disposition home or self-care (01) ==
LOC: HO.CT 15:26
PROVIDERS: PCP Internal Medicine; Visit Provider Hospitalist
DX: R05.9 Cough, unspecified (principal); J18.9 Pneumonia, unspecified organism; J45.40 Moderate persistent asthma, uncomplicated
CPT/HCPCS: 71250

== ENCOUNTER 2024-06-19 13:26 | Outpatient (AMB) | payer MEDICARE, SELFPAY ==
[2024-06-19 13:34] VITALS: BP 118/72; PULSE 72; O2SAT 95; BMI 37.3
--- NOTE | 2024-06-19 13:34 | A.OFFPC_ITS ---
Vital Signs 06/19/24 13:34 Height 5 ft 5 in Weight 224 lb BMI 37.3 BP 118/72 Blood Pressure Location Lt brachial Position Sitting Pulse 72 Pulse Source Pulse Oximeter Pulse Oximetry (%) 95 Oxygen Delivery Method Room Air Intake Visit Reasons: PE Intake Note: Pt is here today for PE. Allergies lisinopril Adverse Reaction (Intermediate, Verified 06/19/24 13:34) cough Tobacco use date assessed: 06/19/24 Dental Screening Dental Screen Date: 06/19/24 Did you have a dental visit in the last 12 months?: Yes Did you have a dental problem in the last 6 months where you did not have access to dental care?: No Was dental information given to patient?: Patient has dentist HPI PE HPI Details Pt presents for PE. Pt underwent Clyde fundoplication and paraesophageal hernia repair on March 24 at [facility] and tolerated procedure well. She stopped using her inhalers since the surgery because her cough and wheezing resolved completely. Patient reports feeling tired but otherwise feeling well. She continues to take atenolol and thyroid replacement. [facility] Medical History (Updated 06/19/24 @ 15:44 by Yahaira Brock MD) Asthma-COPD overlap syndrome Splenic artery aneurysm Lyme disease Hyperglycemia Major depressive disorder Graves disease Cervical spondylosis Hypothyroidism HTN (hypertension) Hypogammaglobulinemia Asthma Surgical History (Updated 06/19/24 @ 15:42 by Yahaira Brock MD) History of hysterectomy Family History Father Substance use disorder Mental health disorder Social History Household Members: Spouse Housing: House Do you presently have visiting nurse or other home services: No Alcohol intake: never Patient Tobacco Use Status: Never used Tobacco e-Cigarette/Vaping Use: Never Used Second Hand Smoke Exposure: No service: No Current occupational status: unemployed Cognitive needs: Yes Hearing needs: No Vision needs: No Questionnaire PHQ-9 Over the last 2 weeks, how often have you been bothered by any of the following problems? 1. Little interest or pleasure in doing things: not at all 2. Feeling down, depressed, or hopeless: not at all 3. Trouble falling or staying asleep, or sleeping too much: not at all 4. Feeling tired or having little energy: not at all 5. Poor appetite or overeating: not at all 6. Feeling bad about yourself - or that you are a failure or have let yourself or your family down: not at all 7. Trouble concentrating on things, such as reading the newspaper or watching television: not at all 8. Moving or speaking so slowly that other people could have noticed. Or the opposite - being so fidgety or restless that you have been moving around a lot more than usual: not at all 9. Thoughts that you would be better off or of hurting yourself in some way: not at all Total score: 0 Depression Screening Interpretation: Negative Depression Screening Done: Yes 73166 - PHQ-9 Billing: Yes Source: Developed by Drs. James Moran, Mary Lou Moctezuma, Les Lujan and colleagues, with an educational joseluis from [employer]. Thrive Questionnaire Date Thrive assessed: 06/19/24 I am a: Patient What is your living situation today?: I have a steady place to live Within the past 12 months, did the food you bought not last and you didn't have the money to get more?: Never true Within the past 12 months, did you worry whether your food would run out before you got money to buy more?: Sometimes True Do you have trouble paying for medicines?: Yes Do you have trouble getting transportation to medical appointments?: No Do you have trouble paying your heating and electricity bill?: No Do you have trouble taking care of your child, family member or friend?: No Do you have trouble with day-to-day activities such as bathing, preparing meals, shopping, managing finances, etc.?: No Are you currently unemployed and looking for a job?: No Are you interested in more education?: No Please select the resources that you would like help with: None Currently or been in a relationship where the following occur: No concerns reported THRIVE Score: 1 AUDIT C Alcohol Use Questionnaire (AUDIT-C) 1. How often do you have a drink containing alcohol?: Never 3. How often do you have six or more drinks on one occasion?: Never Total Score: 0 ELIOT-7 AMB Questionnaire ELIOT-7 Date ELIOT - 7 assessed: 06/19/24 Feeling nervous, anxious, or on edge: 0 = Not at all Not being able to stop or control worryin = Not at all Worrying too much about different things: 0 = Not at all Trouble relaxin = Not at all Being so restless that it is hard to sit still: 0 = Not at all Becoming easily annoyed or irritable: 0 = Not at all Feeling afraid as if something awful might happen: 0 = Not at all Total ELIOT-7 score (0-4 normal; 5-9 mild; 10-14 moderate; 15-21 severe): 0 Source: Developed by Drs. James Moran, Mary Lou Moctezuma, Les Lujan and colleagues, with an educational joseluis from [employer]. ELIOT-7 Assessment Billing ELIOT-7 Assessment Tool: ELIOT-7 Assessment 16523 Review of Systems Const All systems reviewed & are unremarkable except as noted in HPI and below Eyes Reports no additional complaints ENT Reports no additional complaints Card Reports no additional complaints Resp Reports no additional complaints GI Reports no additional complaints Reports no additional complaints Physical exam (Primary Care) Vital Signs: Last Vital Signs Pulse 72 06/19/24 13:34 BP 118/72 06/19/24 13:34 Pulse Ox 95 06/19/24 13:34 Oxygen Delivery Method Room Air 06/19/24 13:34 BMI result Body Mass Index 37.3 Tobacco/Smoking Status: Tobacco use Status Tobacco use date assessed 06/19/24 06/19/24 13:35 Patient Tobacco Use Status Never used Tobacco 06/19/24 13:35 e-Cigarette/Vaping Use Never Used 06/19/24 13:35 PHQ-9: PHQ-9 Score PHQ-9: Total score 0 06/19/24 14:18 Depression Screening Interpretation: Negative Thrive Assessment: Date of Thrive Assessment Date Thrive assessed 06/19/24 06/19/24 14:18 Currently or been in a relationship where the following occur: No concerns reported Const General: no acute distress [facility] General nose exam: Normal external nose present Throat: Yes posterior oropharynx normal Eyes General: appearance normal, both eyes and all related structures Cardio Rhythm: regular rhythm Heart sounds: S1 normal heart sound present and S2 normal heart sound present GI Inspection: Yes normal to inspection Palpation (GI): Soft to palpation Percussion: Yes normal to percussion Auscultation: normal bowel sounds Assessment and Plan Assessment & Plan (1) HTN (hypertension): Code(s): I10 - Essential (primary) hypertension Plan: Continue atenolol and spironolactone (2) Hypothyroidism: Code(s): E03.9 - Hypothyroidism, unspecified Plan: Continue thyroid replacement return for fasting blood work (3) Hyperglycemia: Code(s): R73.9 - Hyperglycemia, unspecified Plan: ADA diet regular physical activity discussed with the patient (4) Asthma-COPD overlap syndrome: Comment: Patient has stopped maintenance inhalers after Clyde fundoplication Code(s): J44.9 - Chronic obstructive pulmonary disease, unspecified Plan: Continue albuterol p.r.n. (5) Status post Clyde fundoplication: Comment: For paraesophageal hernia and chronic GERD by Dr. Freitas 03/24/2024 Code(s): Z98.890 - Other specified postprocedural states (6) Splenic artery aneurysm: Comment: increasing in size, on [facility] 08/16 Code(s): I72.8 - Aneurysm of other specified arteries Plan: Follow-up with vascular surgeon (7) Annual physical exam: Code(s): Z00.00 - Encounter for general adult medical examination without abnormal findings Plan: Well-balanced diet regular physical activity weight loss discussed with the patient she is interested in trying Wegovy for weight lost. Patient has not been able to lose weight despite decreasing caloric intake increasing physical activity for at least 6 months. Patient will discuss the medication with Dr. Tyler to see if there are any contraindications because of the recent surgery. She will schedule mammogram and is up-to-date with colonoscopy Orders: Orders Complete Blood Count Auto Diff Today E03.9 - Hypothyroidism, unspecified, I10 - Essential (primary) hypertension, J44.9 - Chronic obstructive pulmonary disease, unspecified, R73.9 - Hyperglycemia, unspecified Lipid Panel Today E03.9 - Hypothyroidism, unspecified, I10 - Essential (primary) hypertension, J44.9 - Chronic obstructive pulmonary disease, unspecified, R73.9 - Hyperglycemia, unspecified TSH reflex Free T4 Today E03.9 - Hypothyroidism, unspecified, I10 - Essential (primary) hypertension, J44.9 - Chronic obstructive pulmonary disease, unspecified, R73.9 - Hyperglycemia, unspecified UA w Microscopic Today E03.9 - Hypothyroidism, unspecified, I10 - Essential (primary) hypertension, J44.9 - Chronic obstructive pulmonary disease, unspecified, R73.9 - Hyperglycemia, unspecified Hemoglobin A1c Today E03.9 - Hypothyroidism, unspecified, I10 - Essential (primary) hypertension, J44.9 - Chronic obstructive pulmonary disease, unspecified, R73.9 - Hyperglycemia, unspecified MM screening mammo BI Today E03.9 - Hypothyroidism, unspecified, I10 - Essential (primary) hypertension, J44.9 - Chronic obstructive pulmonary disease, unspecified, R73.9 - Hyperglycemia, unspecified, Z12.31 - Encounter for screening mammogram for malignant neoplasm of breast [facility] [place]. Panel Fast Today E03.9 - Hypothyroidism, unspecified, I10 - Essential (primary) hypertension, J44.9 - Chronic obstructive pulmonary disease, unspecified, R73.9 - Hyperglycemia, unspecified Medications: New estradiol 0.01%(0.1mg/gram) 1 appful vaginal DAILY 42.5 grams 5RF Coding Level of Care Code Est Pt Prev Care 40-64y(06922) Diagnoses HTN (hypertension) I10 Hypothyroidism E03.9 Hyperglycemia R73.9 Asthma-COPD overlap syndrome J44.9 Status post Clyde fundoplication Z98.890 Splenic artery aneurysm I72.8 Annual physical exam Z00.00 Additional Codes ELIOT-7 Assessment Billing - ELIOT-7 Assessment Tool: ELIOT-7 Assessment [id number] ([id number])
== END 2024-06-19 15:45 | disposition home or self-care (01) ==
PROVIDERS: PCP Internal Medicine; Visit Provider Internal Medicine
DX: Z00.00 Encounter for general adult medical examination without abnormal findings (principal); J44.9 Chronic obstructive pulmonary disease, unspecified; I72.8 Aneurysm of other specified arteries; I10 Essential (primary) hypertension; E03.9 Hypothyroidism, unspecified; R73.9 Hyperglycemia, unspecified; Z98.890 Other specified postprocedural states

== ENCOUNTER → 2024-06-19 13:26 | Outpatient (BNVA) | payer MEDICARE, SELFPAY | PROVIDERS: PCP Internal Medicine; Visit Provider Internal Medicine | DX: Z00.00 Encounter for general adult medical examination without abnormal findings (principal); I10 Essential (primary) hypertension; E03.9 Hypothyroidism, unspecified; R73.9 Hyperglycemia, unspecified; J44.9 Chronic obstructive pulmonary disease, unspecified; I72.8 Aneurysm of other specified arteries; Z98.890 Other specified postprocedural states | CPT/HCPCS: 96127; 99396 ==

== ENCOUNTER 2024-06-26 11:16 | Outpatient (REF) | payer MEDICARE, SELFPAY ==
[2024-06-26 11:37] LABS: MANUAL DIFF FLAG NO
[2024-06-26 11:58] LABS: Basophils Absolute Auto 0.1 X10*3/uL (0.0-0.2); Basophils Percent Auto 0.9 % (0-2); Eosinophils Absolute Auto 0.2 X10*3/uL (0.0-0.4); Eosinophils Percent Auto 2.2 % (0-4); Hemoglobin 13.6 g/dl (12.0-16.0); Imm Gran Abs Auto 0.02 X10*3/uL (0.00-0.03); Imm Gran Pct Auto 0.3 % (0.0-0.4); Lymphocytes Absolute Auto 2.1 X10*3/uL (1.2-4.9); Lymphocytes Percent Auto 30.6 % (20-40); Mean Corpuscular HGB Conc 32.4 g/dl (31.0-35.0); Mean Corpuscular Hemoglobin 27.2 pg (27.0-33.0); Mean Platelet Volume 9.5 fL (9.4-12.3); Monocytes Absolute Auto 0.5 X10*3/uL (0.1-1.2); Monocytes Percent Auto 8.1 % (2-11); Neutrophils Absolute Auto 3.9 x10*3/uL (2.0-8.3); Neutrophils Percent Auto 57.9 % (45-73); Platelet Count 270 X10*3/uL (160-400); Red Cell Distribution Width 12.2 % (11.0-16.0); White Blood Count 6.7 X10*3/uL (4.8-10.8)
[2024-06-26 12:07] LABS: Estimated Average Glucose 100 mg/dL; Hemoglobin A1C 110.6197 umol/L; Hemoglobin A1c % 5.1 % (<6.0); Total Hemoglobin (HGBA1C) 3432.8482 umol/L
[2024-06-26 12:24] LABS: Appearance Urine Clear; Color Urine Yellow; Glucose Urine UA Negative (Negative); Leukocyte Esterase Urine Negative (Negative); Nitrite Urine Negative (Negative); Specific Gravity - Urine 1.015 (1.005-1.025); Urine Blood Negative (Negative); Urine Ketones Negative (Negative); Urine Protein Negative (Neg-Trace)
[2024-06-26 12:27] LABS: Bacteria Urine None Seen (None Seen); Hyaline Casts Urine 0-2 /LPF (0-2); RBC Urine 0-2 /HPF (0-2); Squamous Epithelial Cell Urine 0-2 /HPF (0-2); WBC Urine 0-5 /HPF (0-5)
[2024-06-26 12:28] LABS: Alanine Aminotransferase 20 U/L (0-31); Albumin Level 4.3 g/dL (3.5-5.0); Alkaline Phosphatase 74 U/L (39-117); Anion Gap 13 (12-20); Aspartate Amino Transferase 18 U/L (5-31); Bilirubin Total 0.7 mg/dL (0.0-1.0); Blood Urea Nitrogen 9 mg/dL (9-16); Calcium 9.7 mg/dL (8.4-10.2); Carbon Dioxide 25 mmol/L (22-29); Chloride 108 mmol/L (96-108); Cholesterol 220 mg/dL (<200); Estimated Glomerular Filt Rate > 60; Glucose Fasting 101 mg/dL (60-99); HDL Cholesterol 72 mg/dL (>40); LDL Cholesterol Calculated 132 mg/dL (<100); Potassium 4.5 mmol/L (3.3-5.1); Sodium 141 mmol/L (135-145); Triglycerides 84 mg/dL (<150)
[2024-06-26 12:46] LABS: TSH reflex Free T4 0.03 uIU/mL (0.32-4.0)
[2024-06-26 13:22] LABS: Free T4 (Free Thyroxine) 0.92 ng/dL (0.71-1.85)
== END 2024-06-26 11:17 | disposition home or self-care (01) ==
LOC: HO.LAB 11:16
PROVIDERS: PCP Internal Medicine; Visit Provider Internal Medicine
DX: I10 Essential (primary) hypertension (principal); J44.9 Chronic obstructive pulmonary disease, unspecified; E03.9 Hypothyroidism, unspecified; R73.9 Hyperglycemia, unspecified
CPT/HCPCS: 36415; 80053; 80061; 81001; 83036; 84439; 84443; 85025

== ENCOUNTER 2024-08-13 09:29 | Outpatient (AMB) | payer MEDICARE, SELFPAY ==
--- NOTE | 2024-08-13 09:30 | A.OFFVIS_ITS ---
Vital Signs 08/13/24 09:31 Height 5 ft 5 in Weight 226 lb 8 oz BMI 37.7 BP 126/78 Blood Pressure Location Rt brachial Position Sitting Pulse 109 H Pulse Source Pulse Oximeter Pulse Oximetry (%) 94 Oxygen Delivery Method Room Air Intake Visit Reasons: Chest congestion, cough, Covid negative Allergies lisinopril Adverse Reaction (Intermediate, Verified 08/13/24 09:34) cough HPI HPI Chest congestion, cough, Covid negative: Details: Desirae is a pleasant 63 year old female, never smoker with underlying asthma COPD overlap and hypogammaglobulinemia. She underwent repair of an eosphageal hernia in March with resolution of dyspnea, cough and wheezing. She has since discontinued all respiratory medications per ENT as it was thought that her inhalers were irritating her vocal cords. She had been doing quite well until a week ago in which she developed sinus symptoms and Sunday started with productive cough with yellow sputum, fevers, chills, chest tightness and dyspnea. COVID negative. She denies any sick contacts however notes now with similar symptoms. [facility] Medical History (Updated 06/19/24 @ 15:44 by Yahaira Brock MD) Asthma-COPD overlap syndrome Splenic artery aneurysm Lyme disease Hyperglycemia Major depressive disorder Graves disease Cervical spondylosis Hypothyroidism HTN (hypertension) Hypogammaglobulinemia Asthma Surgical History (Updated 06/19/24 @ 15:42 by Yahaira Brock MD) History of hysterectomy Family History Father Substance use disorder Mental health disorder Social History Household Members: Spouse Housing: House Do you presently have visiting nurse or other home services: No Alcohol intake: never Patient Tobacco Use Status: Never used Tobacco e-Cigarette/Vaping Use: Never Used Second Hand Smoke Exposure: No service: No Current occupational status: unemployed Cognitive needs: Yes Hearing needs: No Vision needs: No Review of Systems Const Denies excessive sweating, Denies headache(s) and Denies night sweats Eyes Denies dry eyes, Denies irritation and Denies itchy eyes ENT Reports Normal hearing present, Denies headache(s), Denies nasal congestion, Denies nasal discharge, Denies post nasal drip and Denies sore throat Card Denies chest pain, Denies chest pain at rest, Denies chest pain with activity, Denies claudication, Denies leg edema, Denies orthopnea and Denies paroxysmal nocturnal dyspnea Resp Denies excessive phlegm production, Denies pain on inspiration, Denies pain with cough, Denies stridor and Denies wheezing Musc Denies myalgias Neuro Reports Normal hearing present and Denies headache(s) Endo Denies excessive sweating [place]/Lymph Denies lymphadenopathy Aller/Immun Denies itchy eyes, Denies seasonal rhinorrhea and Denies wheezing Physical Exam Vital Signs: Last Vital Signs Pulse 109 H 08/13/24 09:31 Pulse Ox 94 08/13/24 09:31 Oxygen Delivery Method Room Air 08/13/24 09:31 BMI result Body Mass Index 37.7 Const General: cooperative, no acute distress, well developed and alert Nutritional Appearance: obese Orientation/consciousness: patient oriented x3 Limitations: no limitations HEENT Head: Yes normal to inspection, Yes normocephalic and Yes atraumatic Ears: hearing grossly normal bilaterally and external ears normal Eyes General: appearance normal, both eyes and all related structures Eyelids: Yes eyelids normal Sclerae: sclerae normal EOM: EOMs intact bilaterally Neck Neck: Yes normal visual inspection and Yes no lymphadenopathy Lymphatic: no lymphadenopathy noted Chest Chest palpation & inspection: normal inspection of the chest Resp Other: persistent harsh wet cough throughout visit, worse during respiratory exam with postexhalation cough. Rhonchi throughout. No crackles or wheezing appreciated. Effort & Inspection: normal respiratory effort, no audible wheezes, no stridor, not tachypneic, no tripod positioning and no use of accessory muscles Cardio Jugular venous distension: no JVD Rate: regular rate Rhythm: regular rhythm Skin Other: warm, dry General skin exam: no rashes or lesions noted Neuro General: patient oriented x3 Cranial nerves: Yes Normal hearing present Cognition (Neuro): normal cognition Gait exam (Neuro): Normal gait present Extrem General: Yes normal to inspection, Yes capillary refill normal, Yes no clubbing, cyanosis or edema and Yes no pedal edema Psych Appearance: grossly normal and well kempt Speech and movement: Normal speech and movement present and Clear speech present Affect: normal affect Attitude: cooperative Thought process: Normal thought process present Thought content: Normal thought content present Insight: Good insight present (Psych) Judgement: Good judgement present (Psych) Assessment & Plan Assessment & Plan (1) Asthma: Code(s): J45.909 - Unspecified asthma, uncomplicated Category: Medical Qualifiers: Asthma severity: moderate Asthma persistence: persistent Asthma complication type: uncomplicated Qualified Code(s): J45.40 - Moderate persistent asthma, uncomplicated (2) Hypogammaglobulinemia: Code(s): D80.1 - Nonfamilial hypogammaglobulinemia Category: Medical (3) Cough: Code(s): R05.9 - Cough, unspecified Category: Medical Plan Will treat bronchitic symptoms with azithromycin, prednisone and cough syrup with codeine. She is aware if symptoms do not improve to call office and will consider CXR. If worse she will seek emergent care. All questions were answered and patient is in agreement of plan. Will follow up for regularly scheduled appointment with Dr. Acuna or sooner if needed. Medications: New prednisone 40 mg (2 x 20 mg) PO DAILY 10 tabs 0RF azithromycin For 250 mg dose pack: take 500 mg today (day 1), then 250 mg for 4 days (days 2-5) PO 6 tabs 0RF Refilled codeine-guaifenesin 10-100 mg/5 mL 10 mL PO Q6H 10 days PRN 300 mL 0RF cough Coding Level of Care Code Est Pt Level 4 (26717) Diagnoses Moderate persistent asthma without complication J45.40 Asthma severity: moderate Asthma persistence: persistent Asthma complication type: uncomplicated Hypogammaglobulinemia D80.1 Cough R05.9
[2024-08-13 09:31] VITALS: BP 126/78; PULSE 109; O2SAT 94; BMI 37.7
== END 2024-08-13 09:49 | disposition home or self-care (01) ==
PROVIDERS: PCP Internal Medicine; Visit Provider Nurse Practitioner Family
DX: J45.40 Moderate persistent asthma, uncomplicated (principal); D80.1 Nonfamilial hypogammaglobulinemia; R05.9 Cough, unspecified
CPT/HCPCS: 99214

== ENCOUNTER → 2024-08-13 09:29 | Outpatient (BNVA) | payer MEDICARE, SELFPAY | PROVIDERS: PCP Internal Medicine; Visit Provider Nurse Practitioner Family | DX: J45.40 Moderate persistent asthma, uncomplicated (principal); D80.1 Nonfamilial hypogammaglobulinemia; R05.9 Cough, unspecified | CPT/HCPCS: 99212 ==